=== PATIENT | male | born 1960 | race Caucasian/White ===

== ENCOUNTER 2019-04-22 07:55 | Inpatient (IN) | payer OTHER ==
--- NOTE | 2019-04-22 09:11 | ED ---
Lower Extremity - HPI Summary HPI Summary: This patient is a 58 year old M presenting [place] [facility] [place] by with a chief complaint of progressively worsening right hip pain since 04/21/19. Pt reports he cannot ambulate, and has no thigh or lateral strength. Pt previously has had a hip replacement, but has not had complications before this. Per triage , the patient rates the pain 10/10 in severity. - History of Current Complaint Chief Complaint: EDHipPelvisInjury Stated Complaint: THINKS HIP REPLACEMENT BROKE PER PT Time Seen by Provider: 04/22/19 08:59 Hx Obtained From: Patient Onset of Pain: Hours Onset/Duration: Still Present Severity Initially: Moderate Severity Currently: Severe Pain Intensity: 10 Pain Scale Used: 0-10 Numeric Timing: Constant Location: Is Diffuse - right hip Aggravating Factor(s): Standing, Ambulation, Movement Able to Bear Weight: No - Allergies/Home Medications Allergies/Adverse Reactions: Allergies Allergy/AdvReac Type Severity Reaction Status Date / Time No Known Allergies Allergy Verified 04/22/19 07:59 Home Medications: Home Medications Atenolol TAB* [Tenormin TAB* 25 MG] 25 mg PO DAILY 04/22/19 [History Confirmed 04/22/19] PARoxetine HCL TAB* [Paxil TAB*] 10 mg PO DAILY 04/22/19 [History Confirmed ] PMH/Surg Hx/FS Hx/Imm Hx Sensory History: Denies: Hx Legally Blind EENT History: Denies: Hx Deafness - Surgical History Surgical History: Yes Surgery Procedure, Year, and Place: Right Hip Replacement Infectious Disease History: No Infectious Disease History: Denies: Traveled Outside the [place] in Last 30 Days - Family History Known Family History: Negative: Hypertension, Diabetes - Social History Occupation: Retired Lives: With Family Alcohol Use: None Hx Substance Use: No Substance Use Type: Reports: None Hx Tobacco Use: No Smoking Status (MU): Never Smoked Tobacco Review of Systems Negative: Fever Positive: Other - right hip pain All Other Systems Reviewed And Are Negative: Yes Physical Exam - Summary Physical Exam Summary: Appearance: Well-appearing, Well-nourished, lying in bed comfortably Skin: Warm, dry, no obvious rash Eyes: sclera anicteric, no conjunctival pallor ENT: mucous membranes moist, pharynx appears normal Neck: Supple, nontender Respiratory: Clear to auscultation, no signs of respiratory distress Cardiovascular: Normal S1, S2. No murmurs. Normal distal pulses in tibial and radial bilaterally. Abdomen: Soft, nontender, normal active bowel sounds present Musculoskeletal: Normal, Strength/ROM Intact, Tenderness over greater trochanter Neurological: A&Ox3, awake and alert, mentation is normal, speech is fluent and appropriate Psychiatric: affect is normal, does not appear anxious or depressed Triage Information Reviewed: Yes Vital Signs On Initial Exam: Initial Vitals Temp Pulse Resp BP Pulse Ox 98.6 F 86 16 114/70 96 04/22/19 07:57 04/22/19 07:57 04/22/19 07:57 04/22/19 07:57 04/22/19 07:57 Vital Signs Reviewed: Yes Diagnostics - Vital Signs Vital Signs Temp Pulse Resp BP Pulse Ox 04/22/19 07:57 98.6 F 86 16 114/70 96 - Laboratory Result Diagrams: 04/22/19 10:05 04/22/19 10:05 Lab Statement: Any lab studies that have been ordered have been reviewed, and results considered in the medical decision making process. - Radiology Hip/Pelvis X-ray Radiology Interpretation Completed By: Radiologist Summary of Radiographic Findings: Hip/Pelvis X-Ray reveals, per radiologist, IMPRESSION: #. Unremarkable radiographic follow-up of prosthetic RIGHT hip. ED physician has reviewed this radiology report. - Additional Comments Diagnostic Additional Comments: Soft Tissue US reveals, per radiologist, IMPRESSION: No definite fluid collection is noted in the ultrasound of the right hip. Aspiration will be attempted under fluoroscopy. ED physician has reviewed this radiology report Re-Evaluation - Re-Evaluation First Eval Re-Evaluation Time: 09:40 Comment: Discussed results with pt. Second Eval Re-Evaluation Time: 11:01 Comment: Discussed plan of care with pt. Lower Extremity Course/Dx - Course Course Of Treatment: This patient is a 58 year old M presenting to [facility] accompanied by with a chief complaint of progressively worsening right hip pain since 04/21/19. Pt reports he cannot ambulate, and has no thigh or lateral strength. Pt previously has had a hip replacement, but has not had complications before this. Per triage, the patient rates the pain 10/10 in severity. Blood work obtained. WBC is 18.8, Glucose is 134, C-Reactive Protein is 150.34. Hip/Pelvis X-Ray reveals, per radiologist, IMPRESSION: #. Unremarkable radiographic follow-up of prosthetic RIGHT hip. Soft Tissue US reveals, per radiologist,. IMPRESSION: No definite fluid collection is noted in the ultrasound of the right hip. Aspiration will be attempted under fluoroscopy. We discussed patient care with Dr. Beach and they recommended pt be admitted. Dr. Marrufo accepts pt for admission. Patient will be admitted. The patient is agreeable with this plan. - Diagnoses Provider Diagnoses: Septic hip - Physician Notifications Discussed Care Of Patient With: Arnulfo Beach Time Discussed With Above Provider: 09:39 Instructed by Provider To: Other - Disccused pt case with Dr. Beach; 1214 - discussed pt case with Dr. Marrufo and she acceps pt for admission. Discharge - Sign-Out/Discharge Documenting (check all that apply): Patient Departure - Admit All imaging exams completed and their final reports reviewed: Yes Patient Received Moderate/Deep Sedation with Procedure: No - Discharge Plan Condition: Good Disposition: ADMITTED TO [facility] - Attestation Statements Document Initiated by Scribe: Yes Documenting Scribe: Delores Florez Provider For Whom Scribe is Documenting (Include Credential): Dr. Jake Garcia MD Scribe Attestation: IDelores, scribed for Dr. Jake Garcia MD on 04/22/19 at 1756. Status of Scribe Document: Ready
[2019-04-22] MEDS ORDERED: Ketorolac INJ* 30 MG/ML 1 ML VIAL IV PUSH ONE (09:44)
[2019-04-22 10:28] LABS: Hematocrit 45 % (42-52); Hemoglobin 15.7 g/dL (14.0-18.0); Mean Corpuscular HGB Conc 35 g/dL (31-36); Mean Corpuscular Hemoglobin 31 pg (27-31); Mean Corpuscular Volume 88 fL (80-94); Mean Platelet Volume 9.1 fL (7.4-10.4); Platelet Count 207 10^3/uL (150-450); Red Blood Count 5.14 10^6 /uL (4.18-5.48); Red Cell Distribution Width 14 % (10-15); White Blood Count 18.8 10^3/uL (3.5-10.8)
[2019-04-22 10:44] LABS: Albumin 4.1 g/dL (3.2-5.2); Albumin/Globulin Ratio 1.6 (1-3); BUN/Creatinine Ratio 12.5 (8-20); C Reactive Protein 150.34 mg/L (<8.01); Globulin 2.6 g/dL (2-4); Potassium 3.7 mmol/L (3.5-5.0); Total Bilirubin 0.8 mg/dL (0.2-1.0); Total Protein 6.7 g/dL (6.4-8.9)
[2019-04-22 10:54] LABS: ABS Basophils 0.1 10^3/ul (0-0.2); ABS Lymphocytes 1.2 10^3/ul (1.0-4.8); ABS Neutrophils 15.5 10^3/ul (1.5-7.7); Lymphocyte % 6.3 %; Nucleated Red Blood Cells % 0.1
[2019-04-22 12:38] LABS: Erythrocyte Sed Rate 7 mm/Hr (0-19)
[2019-04-22] MEDS ORDERED: Acetaminophen TAB* 325 MG PO PRN (14:23)
[2019-04-22] MEDS ORDERED: Ondansetron ODT TAB* 4 MG PO PRN (14:23)
[2019-04-22] MEDS ORDERED: oxyCODONE TAB* 5 MG TAB PO PRN (14:23)
[2019-04-22] MEDS ORDERED: Magnesium Hydroxide LIQ* 30 ML UDC PO PRN (14:23)
[2019-04-22] MEDS ORDERED: Morphine INJ* 2 MG/ML 1 ML SYRINGE (TWO MG - NEW SYRINGE VERSION) IV PRN (14:23)
[2019-04-22] MEDS ORDERED: Cyclobenzaprine TAB* 10 MG PO PRN (14:23)
[2019-04-22] MEDS ORDERED: Ondansetron INJ* 2 MG/ML VIAL IV PRN (14:23)
[2019-04-22] MEDS ORDERED: diPHENhydraMINE PO* 25 MG PO PRN (14:23)
[2019-04-22] MEDS ORDERED: oxyCODONE/Acetamin 5/325 MG* TAB PO PRN (14:23)
[2019-04-22] MEDS ORDERED: diPHENhydraMINE IV* 50 MG/ML 1 ml VIAL (BENADRYL) IV PRN (14:23)
[2019-04-22 14:36] LABS: Body Fluid Source Synovial Fluid
[2019-04-22] MEDS ORDERED: Vancomycin per Pharmacy* NOTE FOLLOW UP SCH (15:00)
[2019-04-22] MEDS ORDERED: Vancomycin(*) 2,000 MG in NS 0.9% 500 ML* 500 ML IVPB ONE (15:30)
[2019-04-22] MEDS: oxyCODONE/Acetamin 5/325 MG* TAB PO PRN ×2 (16:41→20:53)
--- NOTE | 2019-04-22 17:54 | HP ---
ADMISSION HISTORY AND PHYSICAL: DATE OF ADMISSION: 04/22/19 ATTENDING ORTHOPEDIC PROVIDER: Arnulfo Beach MD.* (DICTATED BY JORDAN DÍAZ) CHIEF COMPLAINT: Right hip pain. HISTORY OF PRESENT ILLNESS: The patient is a 58-year-old male who presented to [facility] today on 04/22/19 with a chief complaint of right hip pain x2 days with associated fever and chills. Onset of pain was not associated with any trauma or overuse. The patient does not have any recent history of illness or any recent history of dental work. The patient is typically able to walk long distances without an assisted device and without any hip pain, though as of 2 days ago, he is completely unable to bear weight. He does have a history of right total hip replacement by Dr. Knapp in 2011. He has had no problems with this hip since it was placed. Past medical history includes hypertension and hyperlipidemia. Pain is localized to the right hip , it is severe and It does not radiate. The patient denies any recent illness including URI, chest congestion, cough, abdominal pain, nausea, dysuria, or skin lesions. The patient had an embedded tick in the left side of his face 1 week ago and has had roughly 50 tick bites in the past. He has no history of heart attack, stroke, DVT, PE, blood transfusion, HIV, or hepatitis. He has no history of adverse effects with anesthesia. PAST MEDICAL HISTORY: 1. Hypertension. 2. Hyperlipidemia. PAST SURGICAL HISTORY: Hernia repair and right total hip arthroplasty. No history of adverse effects with anesthesia. MEDICATIONS: Home medications include simvastatin 40 mg and a blood pressure medication, the patient does not recall. ALLERGIES: No known drug allergies. FAMILY HISTORY: No adverse effects with anesthesia. SOCIAL HISTORY: He does not drink, smoke, or use illicit drugs. 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 REVIEW OF SYSTEMS: General: Positive for fever and chills. Negative for recent illness. HEENT: Negative for any headache, head trauma. Cardio: No irregular heart beats, chest pain, or history of WA. Respiratory: No shortness of breath or cough. No history of asthma. Abdomen: No abdominal pain, nausea, vomiting, or diarrhea. : No dysuria. Musculoskeletal: Positive for severe right hip pain. Neuro: Sensation intact to all extremities without any reported numbness or paresthesias. Hematology: No history of blood clot. Skin: No rash or skin lesions. PHYSICAL EXAMINATION GENERAL: No acute distress though appears uncomfortable. +oriented to person, place, and time. The patient appears flushed. VITAL SIGNS: Temperature 100.0, pulse rate 75, respiratory rate 16, oxygen saturation 96%, blood pressure 138/77. HEENT: Normocephalic, atraumatic. Extraocular movements are intact. RESPIRATORY: Clear to auscultation bilaterally. CARDIO: S1, S2. ABDOMEN: Bowel sounds are normoactive. Nontender to palpation. No guarding or rigidity. MUSCULOSKELETAL: Upper extremities and left lower extremity, skin envelope intact. No obvious deformity. Nontender to palpation. Active flexion and extension in all major joints without pain. Right lower extremity, skin envelope intact. No obvious bony deformity. The patient is exquisitely tender over the hip. There is no erythema, warmth, or obvious fluctuance in this area. He is unable to actively flex at the hip due to pain. Passive range of motion 0 to 45 is relatively nonpainful, though he does have some moderate pain starting at 45 degrees of flexion that becomes severe by 80 degrees of flexion. Negative logroll at the hip. NEURO: Sensation intact to light touch throughout bilateral upper and lower extremities. VASCULAR: DP pulse 2+ bilaterally. PSYCH: Appropriate affect. SKIN: No rash, lesions. No open fractures. DIAGNOSTIC STUDIES: Hip x-ray, unremarkable. Right hip and pelvis x-ray, no sign of fracture dislocation. Right hip aspiration, successful for aspiration of 15 cc of murky pink fluid from the right hip. ASSESSMENT: Septic right hip, also need to rule out lyme PLAN: The patient agrees to I and D of right hip, which is planned for tomorrow. I have consulted Infectious Disease for antibiotic management as well as the hospitalist service for medical comanagement and preop optimization. Blood culture, CBC, BMP, type and screen, INR, lyme screen ordered. I have also added on lyme studies to the fluid culture. The patient will be on subcu heparin for DVT prophylaxis, which needs to be held at midnight and he needs to n.p.o. from midnight for OR tomorrow. I will start him on vancomycin. Antibiotics to be narrowed per cultures. The patient will be seen by Dr. Yong bynum. I have relayed results of aspiration and my exam to Dr Beach who agrees with the plan. JORDAN DÍAZ [id number]/[facility] #: [id number] [facility]
--- NOTE | 2019-04-22 18:52 | CONSULT ---
Consult Consult: S: See consult note by JORDAN Hart from Ortho Service. 58 yo M, works at [employer], [address] Knapp, without any problems whatsoever with R hip until yesterday, 04/21/19. R hip pain started at work yesterday, worsened so that he could barely walk. Overnight fevers, sweats, chills, came to ED this morning. ED history and exam concerning for infection, labs obtained, ortho called and patient admitted to my service. No recent risk factors identified for a bacterial joint infection. Colonoscopy multiple months ago. Recent embedded tick bite 2-3 weeks ago on face. O: Diaphoretic. RLE: - increased warmth skin of hip and thigh - TTP about hip - pain beyond passive hip flexion of 40 degrees, pain with passive hip rotation - NVID Microbiology 04/22/19 14:14 Body Fluid Gram Stain - Final Selected Entries 04/22/19 04/22/19 16:26 17:14 Temperature 99.4 F 99.4 F Laboratory Tests 04/22/19 04/22/19 04/22/19 10:05 10:05 14:14 WBC 18.8 H Neut % (Auto) 82.7 C-Reactive Protein 150.34 H Fluid WBC 03339 A: Infected R total hip arthroplasty P: - See note from JORDAN Hart - Given the level of pain, the significant elevation in WBC, the gram stain, a bacterial infection is significantly more likely than a Lyme infection - The patient benefits prognosis-wyman from an early onset with just 1 day of symptoms at this point - ID and Hospitalist consults pending - The patient will go to the OR tomorrow or Saturday for open I&D with exchange of polyethylene liner by myself or one of my partners - Await blood culture, hip aspiration culture results to refine antibiotic coverage. Patient currently on Vanco. - NPO p midnight, hold anticoagulation post midnight
--- NOTE | 2019-04-22 19:31 | CONSULT ---
Subjective Date of Service: 04/22/19 Interval History: This is a 58 year old male with hx of OA, HTN and HLP that presented to the ED with 2 day history of progressive hip pain, fevers, chills and diaphoresis. Patient has history of right total hip [place] [address] Knapp. He has had no complications since his surgery and up to this point has been in good health. In the ER, he is noted to have leukocytosis and fever. Joint aspirate of the right hip appears purulent. Plan is for the OR tomorrow with orthopedics for washout. Hospitalists are consulted for pre-op evaluation. Patient denies any dyspnea with exertion, no chest pain, no previous hx of ischemic events or stroke, no renal disease and no hx of diabetes mellitus. He normally walks 6-8 miles per day at work without issue. 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 with Past Medical History: Unchanged from Admission - HTN, HLP, OA Review of Systems - Measurements Intake and Output: Intake and Output Last 24 Hours 04/20/19 04/21/19 04/22/19 04/23/19 06:59 06:59 06:59 06:59 Intake Total 520 Balance 520 Weight 245 lb Intake: IV Fluids 20 NS 20 Medicated IV 500 Vancomycin 500 - Review of Systems General Comments: Reports general malaise, pain and discomfort Constitutional Symptoms: Negative: Weight Gain, Weight Loss, Weakness, Fatigue, Fever, Night Sweats, Unexplained Falls, Other Dermatology: Negative: Normal, Rash, Skin Lesions, Cancer, Skin Lumps, Other HEENT: Positive: Normal Eyes: Positive: Contacts or Glasses Thyroid: Positive: Normal Pulmonary: Negative: Normal, Cough, Sputum, Hemoptysis, Wheezing, Respiratory Distress, Shortness of Breath, COPD, Asthma, Exercise Intolerance, Home Oxygen, Other Cardiology: Negative: Normal, Chest Pain, Shortness of Breath, Palpitations, Swelling of Ankles, Peripheral Vascular Dis, Edema, Faintness, Syncope, Claudication, Proximal NocturnalDyspnea, Orthopnoea, Other Gastroenterology: Negative: Normal, Abdominal Pain, Nausea, Vomiting, Anorexia, Indigestion, Difficulty Swallowing, Heartburn, Constipation, Diarrhea, Blood in Stools, Change in Bowel Habits, Haematemesis, Melena, Other Genital - Urinary: Negative: Normal, Dysuria, Hematuria, Polyuria, Nocturia, Other Musculoskeletal: Positive: Joint Pain Endocrinology: Negative: Normal, Thyroid Problems, Adrenal Problems, Gonadal Problems, Family Hx Endocrine Disorders, Obesity, Diabetes Mellitus, Hyperglycemia, Hx Hypoglycemia, Diabetic Foot Ulcers, Calluses, Hirsutism, Menstrual Abnormalities , Polydipsia, Polyuria, Gonadal Problems, Gynecomastia, Pituitary disease, Other Neurology: Positive: Normal Psychiatry: Positive: Normal Allergic/Immunologic: Negative: Hx Anaphylaxis, Hx Angioedema, Hx Environmental, Hx Seasonal, Asthma, Hx HIV, Immunocompromise, Swollen Glands LymphNodes, Other Objective Active Medications: Acetaminophen (Tylenol Tab*) 975 mg PO Q8H PRN PRN Reason: FEVER/PAIN Atenolol (Tenormin Tab*) 25 mg PO DAILY [facility] Cyclobenzaprine HCl (Flexeril Tab*) 10 mg PO TID PRN PRN Reason: SPASMS Diphenhydramine HCl (Benadryl Iv*) 25 mg IV Q6H PRN PRN Reason: itching Diphenhydramine HCl (Benadryl Po*) 25 mg PO Q6H PRN PRN Reason: itching Docusate Sodium (Colace Cap*) 100 mg PO BID [facility] Heparin Sodium (Porcine) (Heparin Vial(*)) 5,000 units SUBCUT Q8HR [facility] Stop: 04/22/19 23:59 Vancomycin HCl 1,250 mg/ (Sodium Chloride) 250 mls @ 166.667 mls/hr IVPB Q8H [facility] Lactated Ringer's (Lactated Ringers 1000 Ml Bag*) 1,000 mls @ 100 mls/hr IV PER RATE [facility] Lactulose (Lactulose*) 30 ml PO BID PRN PRN Reason: CONSTIPATION Magnesium Hydroxide (Milk Of Magnesia Liq*) 30 ml PO BID [facility] Magnesium Hydroxide (Milk Of Magnesia Liq*) 30 ml PO Q6H PRN PRN Reason: constipation Morphine Sulfate (Morphine Inj (Syringe))*) 2 mg IV Q4H PRN PRN Reason: PAIN - BREAKTHROUGH Ondansetron HCl (Zofran Inj*) 4 mg IV Q6H PRN PRN Reason: nausea Ondansetron HCl (Zofran Odt Tab*) 4 mg PO Q6H PRN PRN Reason: NAUSEA Oxycodone HCl (Roxycodone Tab*) 10 mg PO Q4H PRN PRN Reason: PAIN - SEVERE Oxycodone/Acetaminophen (Percocet 5/325 Tab*) 1 tab PO Q4H PRN PRN Reason: PAIN - MILD Oxycodone/Acetaminophen (Percocet 5/325 Tab*) 2 tab PO Q4H PRN PRN Reason: PAIN - MODERATE Last Admin: 04/22/19 16:41 Dose: 2 tab Paroxetine HCl (Paxil Tab*) 10 mg PO DAILY [facility] Pharmacy Consult (Vancomycin Per Pharmacy*) 1 note FOLLOW UP .VANC PER PHARMACY [facility]; Protocol Pharmacy Profile Note (Vancomycin Trough Check) 1 note FOLLOW UP 1500 ONE Stop: 04/23/19 15:01 Vital Signs - 8 hr 04/22/19 04/22/19 04/22/19 11:29 11:59 12:01 Temperature Pulse Rate 79 75 75 Respiratory Rate Blood Pressure 113/67 122/65 (mmHg) O2 Sat by Pulse 93 94 94 Oximetry 04/22/19 04/22/19 04/22/19 13:00 13:05 14:42 Temperature Pulse Rate 77 81 77 Respiratory Rate Blood Pressure 120/74 (mmHg) O2 Sat by Pulse 94 94 94 Oximetry 04/22/19 04/22/19 04/22/19 14:44 14:53 15:00 Temperature 100.0 F Pulse Rate 82 75 77 Respiratory 16 Rate Blood Pressure 138/77 138/77 (mmHg) O2 Sat by Pulse 95 96 95 Oximetry 04/22/19 04/22/19 04/22/19 15:05 16:00 16:05 Temperature Pulse Rate 84 84 83 Respiratory Rate Blood Pressure 126/68 120/67 (mmHg) O2 Sat by Pulse 93 92 92 Oximetry 04/22/19 04/22/19 04/22/19 16:26 16:40 16:41 Temperature 99.4 F Pulse Rate 80 Respiratory 18 20 18 Rate Blood Pressure 123/62 (mmHg) O2 Sat by Pulse 95 Oximetry 04/22/19 17:14 Temperature 99.4 F Pulse Rate 80 Respiratory 18 Rate Blood Pressure 123/62 (mmHg) O2 Sat by Pulse 95 Oximetry Oxygen Devices in Use Now: None Appearance: alert, mildly diaphoretic, NAD Eyes: No Scleral Icterus, PERRLA Ears/Nose/Mouth/Throat: NL Teeth, Lips, Gums, Clear Oropharnyx, Mucous Membranes Moist Neck: NL Appearance and Movements; NL JVP, Trachea Midline Respiratory: Symmetrical Chest Expansion and Respiratory Effort, Clear to Auscultation Cardiovascular: NL Sounds; No Murmurs; No JVD, RRR, No Edema Abdominal: NL Sounds; No Tenderness; No Distention, No Hepatosplenomegaly Lymphatic: No Cervical Adenopathy Extremities: No Edema, No Clubbing, Cyanosis Skin: No Rash or Ulcers, - - mild erythema over right hip Neurological: Alert and Oriented x 3, NL Sensation, NL Muscle Strength and Tone Nutrition: Taking PO's Result Diagrams: 04/22/19 10:05 04/22/19 10:05 Microbiology and Other Data: Microbiology 04/22/19 14:14 Gram Stain - Final Body Fluid Skin and Soft Tissue MRSA/MSSA (PCR - Final Mrsa Negative S.aureus Negative Diagnostic Imaging: Patient Name: MATT GOLDSTEIN Medical Record#: [id number] Ordering Physician: Jake Garcia MD Acct.#: [id number] : 1960 Age: 58 Sex: M Location: EMERGENCY DEPARTMENT Exam Date: 04/22/19 1209 ADM Status: REG ER Order Information: Aspiration/Injection Hip Right Accession Number: [id number] CPT: 39438 Indication: Right hip pain, fever and elevated white blood cell. Approximately 27 seconds of fluoroscopy time was used. Using usual aseptic technique and lidocaine as local anesthetic a 22-gauge needle was placed within the right hip joint. Aspiration was attempted. 2 mL of saline was then injected into the joint space. The needle was then manipulated. Approximately 15 mL of pink murky fluid was then aspirated. The specimen was sent for bacteriology. IMPRESSION: Successful aspiration and localization of the right hip with aspiration of 15 mL of murky pink fluid from the right hip joint. Patient Name: MATT GOLDSTEIN Medical Record#: [id number] Ordering Physician: Grisel ORTEGA Acct.#: [id number] : 1960 Age: 58 Sex: M Location: EMERGENCY DEPARTMENT Exam Date: 04/22/19 0808 ADM Status: REG ER Order Information: HIP RIGHT 2 VIEWS AND PELVIS Accession Number: [id number] CPT: 32195 Indication: RIGHT hip pain. Post hip replacement in 2011. Comparison: March 18, 2012 Technique: AP pelvis and AP and frog-leg lateral views RIGHT hip. Report: Normally located RIGHT total hip replacement. Negative for periprosthetic fracture or stigmata of loosening. Negative for pelvic fracture or joint diastases. Lumbar sacral spine degenerative spondylosis and facet joint osteoarthritis. Unremarkable soft tissue contours. IMPRESSION: #. Unremarkable radiographic follow-up of prosthetic RIGHT hip. Assessment/Plan - Billing Assessment and Recommendations: This is a 58 year old male that presents to the ER with septic right hip prosthesis: 1. Septic Right Hip Prosthesis - POC as per orthopedics - OR for washout in AM - NPO after midnight - Pain control PRN - ID consulted, continue vancomycin and follow cultures - Tylenol for fevers - Does not appear to be meeting sepsis criteria, has leukocytosis but no hypotension or tachycardia 2. Hx of HTN - Continue atenolol 3. HLP - Continue simvastatin VTE PPX: - Heparin subq Diet: - NPO after midnight Code Status: - Full code Admission Status and Rationale: - RCRI Score is 0 Points, Class I Risk or 3.9% 30 day Risk for Post Operative Cardiac Event - Medically optimized for procedure in AM - Inpatient, dispo per ortho.
[2019-04-22] MEDS: Magnesium Hydroxide LIQ* 30 ML UDC PO SCH (20:54)
[2019-04-22] MEDS: Docusate CAP* 100 MG PO SCH (20:54)
[2019-04-22] MEDS ORDERED: Heparin VIAL(*) 5000 UNITS/ML VIAL (FIVE THOUSAND) SUBCUT SCH (22:00)
[2019-04-22] MEDS ORDERED: NS 0.9% 1000 ML** 1,000 ML IV ONE (23:30)
[2019-04-22] MEDS ORDERED: NS 0.9% IV ONE (23:30)
[2019-04-22] MEDS ORDERED: Piperacillin/Tazobac ADVAN(*) 3.375 GM in NS 0.9% 100 ML* 100 ML IVPB SCH (23:45)
[2019-04-23] MEDS: Vancomycin(*) 1,250 MG in NS 0.9% 250 ML* 250 ML IVPB SCH ×2 (00:42→07:23)
[2019-04-23] MEDS: Piperacillin/Tazobac ADVAN(*) 3.375 GM in NS 0.9% 100 ML* 100 ML IVPB SCH ×3 (03:00→12:11)
[2019-04-23] MEDS ORDERED: Lactated Ringers 1000 ML Bag* 1,000 ML IV SCH ×2 (06:00→16:00)
[2019-04-23 06:47] LABS: ABS Eosinophils 0.1 10^3/ul (0-0.6); ABS Lymphocytes 1.2 10^3/ul (1.0-4.8); ABS Monocytes 1.2 10^3/ul (0-0.8); ABS Neutrophils 8.5 10^3/ul (1.5-7.7); Eosinophil % 0.7 %; Hematocrit 40 % (42-52); Hemoglobin 13.7 g/dL (14.0-18.0); Lymphocyte % 11.1 %; Mean Corpuscular HGB Conc 34 g/dL (31-36); Mean Corpuscular Hemoglobin 30 pg (27-31); Mean Corpuscular Volume 89 fL (80-94); Mean Platelet Volume 9.1 fL (7.4-10.4); Nucleated Red Blood Cells % 0.1; Platelet Count 170 10^3/uL (150-450); Red Blood Count 4.51 10^6 /uL (4.18-5.48); Red Cell Distribution Width 14 % (10-15); White Blood Count 11.1 10^3/uL (3.5-10.8)
[2019-04-23 07:00] LABS: INR 1.02 (0.82-1.09)
[2019-04-23 07:03] LABS: BUN/Creatinine Ratio 18.9 (8-20); Calcium 8.3 mg/dL (8.6-10.3); EGFR African American 105.6 (>60); EGFR Non-African American 87.3 (>60); Potassium 3.8 mmol/L (3.5-5.0)
[2019-04-23] MEDS ORDERED: Famotidine IV* 10 MG/ML 2 ML (20 mg) IV ONE (08:25)
[2019-04-23] MEDS: PARoxetine HCL TAB* 10 MG PO SCH (08:34)
[2019-04-23] MEDS: Atenolol TAB* 25 MG PO SCH (08:34)
[2019-04-23] MEDS ORDERED: NS 0.9% 1000 ML** 1,000 ML IV ONE (09:43)
[2019-04-23] MEDS: Docusate CAP* 100 MG PO SCH ×3 (09:52→22:35)
[2019-04-23] MEDS: Magnesium Hydroxide LIQ* 30 ML UDC PO SCH ×3 (09:52→22:35)
[2019-04-23] MEDS ORDERED: Piperacillin/Tazobac ADVAN(*) 3.375 GM in NS 0.9% 100 ML* 100 ML IVPB SCH (12:00)
--- NOTE | 2019-04-23 13:37 | CONS ---
CONSULTATION REPORT: DATE OF CONSULT: 04/23/19 PRIMARY CARE PROVIDER: Dr. Mary Jane Heath. PROVIDER REQUESTING CONSULTATION: JORDAN Hart CONSULTING SERVICE: Infectious Disease. PROVIDER: Kolton Guy NP ATTENDING PROVIDER: Dr. Boom Giron.* (DICTATED BY KOLTON GUY NP) REASON FOR CONSULTATION: Septic right hip in the setting of a prosthetic joint. IMPRESSION: 1. 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 Synovial fluid was ileana and cloudy, white blood cell count 29,423, rbc's 12,641, total cell count 100, neutrophils 98, lymphocytes 2. Blood cultures from admission with Streptococcus mitis and Streptococcus oralis 3/4 bottles. Fluid from the right hip with no growth to date. The patient is currently febrile with a fever of 101.5. He has been on vancomycin and Zosyn since admission. Orthopedics is planning to take him to the operating room later today or tomorrow for incision and drainage of the hip. 2. Hypertension. 3. Hyperlipidemia. RECOMMENDATIONS: Stop vancomycin and zosyn. Start Ceftriaxone 2 gm IV daily. He should have a transthoracic echocardiogram to evaluate for endocarditis. HISTORY OF PRESENT ILLNESS: Mr. Gilliland is a 58-year-old male with past medical history significant for hypertension, hyperlipidemia, and a total right hip arthroplasty in 2011, who states that he was in his usual state of health until 2 days prior when he developed right hip pain with fevers, chills, and sweating. His pain progressed and became so bad that he was unable to ambulate , and he decided to present to the emergency room for evaluation of his symptoms. While in the emergency room, he had right hip x-ray that was unremarkable. He also had a right hip aspiration for 15 cc of reported murky pink fluid. He was seen in consultation by Orthopedics and was admitted for suspected septic right hip. While in the hospital, he had blood cultures returned with 3/4 bottles positive for Strep mitis, Strep oralis. Body fluid has no growth to date. He has been afebrile with the exception of a 101.5 temperature this morning. His initial leukocytosis of 18,800 has improved to 11.1 this morning. He reports working [place] and frequently gets tick bites, the last tick bite he had was 2 weeks ago. He had one on his left cheek that he initially thought was a mole and this fell off. He continues to report intermittent fevers, chills, diaphoresis. He denies shortness of breath, cough, muscle pain, urinary symptoms such as urgency, frequency, dysuria. He denies abdominal pain. He denies nausea, vomiting, diarrhea, or recent travel. He does report right hip discomfort. PAST MEDICAL HISTORY: 1. Hypertension. 2. Hyperlipidemia. PAST SURGICAL HISTORY: 1. Status post hernia repair. 2. Status post right total hip arthroplasty in 2012. HOME MEDICATIONS: Include: 1. Paxil 10 mg by mouth daily. 2. Atenolol 25 mg by mouth daily. HOSPITAL MEDICATIONS: 1. Acetaminophen 975 mg by mouth every 8 hours as needed for fever or pain. 2. Atenolol 25 mg by mouth daily. 3. Flexeril 10 mg by mouth 3 times daily as needed for muscle spasms. 4. Benadryl 25 mg IV or p.o. every 6 hours as needed for itching. 5. Colace 100 mg by mouth twice daily. 6. Lactated Ringers 100 mL an hour intravenous. 7. Lactulose 30 mL by mouth twice daily as needed for constipation. 8. Milk of magnesia 30 mL by mouth twice daily until BMs and 30 mL by mouth every 6 hours as needed for constipation. 9. Morphine sulfate 2 mg IV every 4 hours as needed for pain. 10. Zofran 4 mg IV or by mouth every 6 hours as needed for nausea. 11. Oxycodone 10 mg by mouth every 4 hours as needed for pain. 12. Percocet 5/325 one to two tablets by mouth every 4 hours as needed for pain. 13. Paxil 10 mg by mouth daily. 14. Zosyn 3.375 g IV every 6 hours. 15. Vancomycin 1250 mg IV every 8 hours. ALLERGIES: No known drug allergies. FAMILY HISTORY: Denies family history of recurrent or resistant infections, coronary artery disease, diabetes or cancer. SOCIAL HISTORY: He denies alcohol, tobacco, or recreational drug use. He is a former smoker. He reports quitting 20 years ago. Prior to that, he had a half to 1 pack a day smoking history for approximately 20 years. REVIEW OF SYSTEMS: I performed a 10-point review of systems. All other pertinent positives and negatives are mentioned in the history of present illness. The remaining review of systems are negative. PHYSICAL EXAMINATION: Vital Signs: Temperature 101.5, heart rate 70, respiratory rate 18, O2 sat 95% on room air, blood pressure 117/67. General Appearance: Alert, pleasant, appears to be in no acute distress. Head: Normocephalic, atraumatic. ENT: Pupils are equal and reactive to light. Extraocular movements are intact. No conjunctival hemorrhage. Mucous membranes are moist. Neck: Supple. No lymphadenopathy. Neurological: Cranial nerves II through XII are grossly intact. He is alert and oriented x4. Cardiovascular: Regular rate and rhythm. S1, S2 present. No murmurs, rubs, or gallops heard. Abdomen: Soft, nontender, and nondistended. Bowel sounds present x4. Extremities: No lower extremity edema. DP and PT pulses 2+ and symmetric. Musculoskeletal: No clubbing or cyanosis noted. The patient exhibits good strength in all extremities. There is no pain with palpation of the right or left knee. There is no crepitus. Full range of motion. No warmth. There is tenderness with palpation of the left hip. He has limited range of motion due to pain and negative log roll bilateral. No tenderness with palpation of the neck, spine, or back. Skin: No rashes or abnormalities seen. Psychological: Calm and cooperative. DIAGNOSTIC STUDIES/LABORATORY DATA: Sodium 136, potassium 3.8, chloride 105, CO2 of 24, BUN 17, creatinine 0.90, glucose 123. White blood cell count 11.1, hemoglobin 13.7, hematocrit 40, platelet count 170. ESR on admission 7. CRP on admission was 150.34. Synovial fluid per above and blood cultures per above. Please see impression and recommendations outlined above. Recommendations have been discussed with JORDAN Hart. Thank you for asking us to see Mr. Gilliland in consultation. The case has been reviewed with my attending Dr. Boom Giron, who agrees with the plan of care. Reviewed by LIANG DAVISON 04/24/19 1554 [id number]/[facility] #: [id number] MTDD
[2019-04-23] MEDS: cefTRIAXone(*) 2 GM in NS 0.9% 100 ML* 100 ML IVPB SCH (14:55)
[2019-04-23] MEDS ORDERED: Vancomycin Trough Check NOTE FOLLOW UP ONE (15:00)
[2019-04-23] MEDS ORDERED: Ondansetron ODT TAB* 4 MG PO ONE (15:39)
[2019-04-23] MEDS ORDERED: Buffered Lidocaine 1% SYRIN* 1 ML/SYRINGE INTRADERM ONE (15:39)
[2019-04-23] MEDS ORDERED: Dexamethasone TAB* 4 MG PO ONE (15:39)
--- NOTE | 2019-04-23 16:15 | PN ---
Subjective Date of Service: 04/23/19 Interval History: Patient seen and examined. Febrile today, pending OR this afternoon for washout. Discussed results from micro and strep bacteremia. Patient denies SOB, no chest pain, no SOB, no n/v. Still with hip pain on affected side and difficulty with ambulation. at bedside. 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, lives with Past Medical History: Unchanged from Admission - HTN, HLP, OA Objective Active Medications: Acetaminophen (Tylenol Tab*) 975 mg PO Q8H PRN PRN Reason: FEVER/PAIN Last Admin: 04/23/19 10:28 Dose: 975 mg Atenolol (Tenormin Tab*) 25 mg PO DAILY [facility] Last Admin: 04/23/19 08:34 Dose: 25 mg Cyclobenzaprine HCl (Flexeril Tab*) 10 mg PO TID PRN PRN Reason: SPASMS Diphenhydramine HCl (Benadryl Iv*) 25 mg IV Q6H PRN PRN Reason: itching Diphenhydramine HCl (Benadryl Po*) 25 mg PO Q6H PRN PRN Reason: itching Docusate Sodium (Colace Cap*) 100 mg PO BID [facility] Last Admin: 04/23/19 09:52 Dose: Not Given Lactated Ringer's (Lactated Ringers 1000 Ml Bag*) 1,000 mls @ 100 mls/hr IV PER RATE [facility] Last Admin: 04/23/19 05:38 Dose: 100 mls/hr Ceftriaxone Sodium 2 gm/ (Sodium Chloride) 100 mls @ 200 mls/hr IVPB Q24H [facility] Last Admin: 04/23/19 14:55 Dose: 200 mls/hr Lactated Ringer's (Lactated Ringers 1000 Ml Bag*) 1,000 mls @ 125 mls/hr IV PER RATE [facility] Lactulose (Lactulose*) 30 ml PO BID PRN PRN Reason: CONSTIPATION Magnesium Hydroxide (Milk Of Magnesia Liq*) 30 ml PO BID [facility] Last Admin: 04/23/19 09:52 Dose: Not Given Magnesium Hydroxide (Milk Of Magnesia Liq*) 30 ml PO Q6H PRN PRN Reason: constipation Morphine Sulfate (Morphine Inj (Syringe))*) 2 mg IV Q4H PRN PRN Reason: PAIN - BREAKTHROUGH Ondansetron HCl (Zofran Inj*) 4 mg IV Q6H PRN PRN Reason: nausea Ondansetron HCl (Zofran Odt Tab*) 4 mg PO Q6H PRN PRN Reason: NAUSEA Oxycodone HCl (Roxycodone Tab*) 10 mg PO Q4H PRN PRN Reason: PAIN - SEVERE Oxycodone/Acetaminophen (Percocet 5/325 Tab*) 1 tab PO Q4H PRN PRN Reason: PAIN - MILD Oxycodone/Acetaminophen (Percocet 5/325 Tab*) 2 tab PO Q4H PRN PRN Reason: PAIN - MODERATE Last Admin: 04/22/19 20:53 Dose: 2 tab Paroxetine HCl (Paxil Tab*) 10 mg PO DAILY [facility] Last Admin: 04/23/19 08:34 Dose: 10 mg Vital Signs - 8 hr 04/23/19 04/23/19 04/23/19 08:11 10:23 11:56 Temperature 101.5 F 99 F Pulse Rate 70 64 Respiratory 18 18 22 Rate Blood Pressure 117/67 102/54 (mmHg) O2 Sat by Pulse 95 94 Oximetry 04/23/19 04/23/19 12:16 15:27 Temperature 99.1 F Pulse Rate 57 Respiratory 18 22 Rate Blood Pressure 116/68 (mmHg) O2 Sat by Pulse 97 Oximetry Oxygen Devices in Use Now: None Appearance: alert, NAD Eyes: No Scleral Icterus, PERRLA Ears/Nose/Mouth/Throat: NL Teeth, Lips, Gums, Mucous Membranes Moist Neck: NL Appearance and Movements; NL JVP, Trachea Midline Respiratory: Symmetrical Chest Expansion and Respiratory Effort, Clear to Auscultation Cardiovascular: NL Sounds; No Murmurs; No JVD, RRR, No Edema Abdominal: NL Sounds; No Tenderness; No Distention Extremities: No Edema, No Clubbing, Cyanosis Skin: - - tender over right hip Neurological: Alert and Oriented x 3, NL Muscle Strength and Tone Nutrition: - - NPO Result Diagrams: 04/23/19 06:28 04/23/19 06:28 Microbiology and Other Data: Microbiology 04/22/19 14:14 Gram Stain - Final Body Fluid Skin and Soft Tissue MRSA/MSSA (PCR - Final Mrsa Negative S.aureus Negative Diagnostic Imaging: Patient Name: MATT GOLDSTEIN Medical Record#: [id number] Ordering Physician: Jake Garcia MD Acct.#: [id number] : 1960 Age: 58 Sex: M Location: EMERGENCY DEPARTMENT Exam Date: 04/22/19 1209 ADM Status: REG ER Order Information: Aspiration/Injection Hip Right Accession Number: [id number] CPT: 16098 Indication: Right hip pain, fever and elevated white blood cell. Approximately 27 seconds of fluoroscopy time was used. Using usual aseptic technique and lidocaine as local anesthetic a 22-gauge needle was placed within the right hip joint. Aspiration was attempted. 2 mL of saline was then injected into the joint space. The needle was then manipulated. Approximately 15 mL of pink murky fluid was then aspirated. The specimen was sent for bacteriology. IMPRESSION: Successful aspiration and localization of the right hip with aspiration of 15 mL of murky pink fluid from the right hip joint. Patient Name: MATT GOLDSTEIN Medical Record#: [id number] Ordering Physician: Grisel ORTEGA Acct.#: [id number] : 1960 Age: 58 Sex: M Location: EMERGENCY DEPARTMENT Exam Date: 04/22/19 0808 ADM Status: REG ER Order Information: HIP RIGHT 2 VIEWS AND PELVIS Accession Number: [id number] CPT: 98187 Indication: RIGHT hip pain. Post hip replacement in 2011. Comparison: March 18, 2012 Technique: AP pelvis and AP and frog-leg lateral views RIGHT hip. Report: Normally located RIGHT total hip replacement. Negative for periprosthetic fracture or stigmata of loosening. Negative for pelvic fracture or joint diastases. Lumbar sacral spine degenerative spondylosis and facet joint osteoarthritis. Unremarkable soft tissue contours. IMPRESSION: #. Unremarkable radiographic follow-up of prosthetic RIGHT hip. Assess/Plan/Problems-Billing Assessment and Recommendations: This is a 58 year old male that presents to the ER with septic right hip prosthesis and now found to have positive blood cultures. - Patient Problems (1) Bacteremia due to Streptococcus Code(s): R78.81 - BACTEREMIA; B95.5 - UNSP STREPTOCOCCUS THE CAUSE OF DISEASES [facility] SNOMED Code(s): 600789197863 Comment: - Strep mitis/strep oralis in joint and blood cultures - Lyme atb negative - ID following, DC vanco and continue ceftriaxone - Tylenol for fevers, IVF (2) Prosthetic hip infection Code(s): T84.59XA - INFECT/INFLM REACTION DUE TO OTH INTERNAL JOINT PROSTH, INIT ; Z96.649 - PRESENCE OF UNSPECIFIED ARTIFICIAL HIP JOINT SNOMED Code(s): 459130960 Comment: - Hip aspiration 04/22/19 yielded strep - Plan for surgical washout today with Dr. Beach - Pain control, supportive care (3) HTN (hypertension) Code(s): I10 - ESSENTIAL (PRIMARY) HYPERTENSION SNOMED Code(s): 98565315 Comment: - Stable on atenolol (4) DVT prophylaxis Code(s): Z29.9 - ENCOUNTER FOR PROPHYLACTIC MEASURES, UNSPECIFIED SNOMED Code( s): 365434482 Comment: - Restart heparin post-op (5) Full code status Code(s): Z78.9 - OTHER SPECIFIED HEALTH STATUS SNOMED Code(s): 942820276 Comment: Status and Disposition: Inpatient, dispo per ortho
--- NOTE | 2019-04-23 16:41 | ECHO ---
*[facility]* [place] [address] Fax #: [phone] Transthoracic Echocardiogram Patient: Janusz Gilliland : 1960 Study Date: 04/23/2019 Age: 58 Gender: M HR: 60 bpm Height: 72 in /182.9 cm BSA: 2.32 m^2 Weight: 244.5 lb /111.1 kg BMI: 33.2 kg/m^2 *[employer]: * Nanette Adams RD *Referring Physician: * Nanette Guy *Reading Physician: * Adali Moore MD Indications: Bacteremia. History: Risk factors: Hypertension. Obese. Hyperlipidemia. Labs, prior tests, procedures, and surgery: Right hip joint prosthesis (2011). Conclusions Summary: 1. Left ventricle: The cavity size is normal. Wall thickness is normal. Systolic function is at the lower limits of normal. The estimated ejection fraction is 50-55%. 2. Right ventricle: The cavity size is mildly dilated. 3. Left atrium: The atrium is mildly dilated. 4. Right atrium: The atrium is mildly dilated. 5. Mitral valve: There is trace regurgitation. 6. No previous echocardiogram available. Study data: Transthoracic echocardiogram. Procedure: Transthoracic echocardiography was performed. Image quality was fair. Complete 2D, spectral Doppler, and color flow Doppler. Location: Bedside. Patient status: Inpatient. Patient room number: 331. Rhythm: Normal sinus rhythm. Findings Left ventricle: The cavity size is normal. Wall thickness is normal. Systolic function is at the lower limits of normal. The estimated ejection fraction is 50-55%. Wall motion is normal; there are no regional wall motion abnormalities. Left ventricular diastolic function parameters are normal. Right ventricle: The cavity size is mildly dilated. Systolic function is low normal. Right ventricular systolic pressure may be underestimated. Ventricular septum: There is septal flattening of the interventricular septum consistent with RV volume or pressure overload. Left atrium: The atrium is mildly dilated. Right atrium: The atrium is mildly dilated. Mitral valve: The leaflets are mildly thickened. There is no evidence of a vegetation. There is no evidence of stenosis. There is trace regurgitation. Aortic valve: The valve is trileaflet. The leaflets are mildly thickened. There is no evidence of a vegetation. There is no evidence of stenosis. There is no significant regurgitation. Tricuspid valve: The leaflets are normal thickness. There is no evidence of a vegetation. There is no evidence of stenosis. There is mild regurgitation. Pulmonic valve: Not well visualized. There is no evidence of stenosis. There is trace regurgitation. Aorta: Aortic root: The aortic root is appears normal. Ascending aorta: The ascending aorta is appears normal. Aortic arch: The aortic arch is appears normal. Pericardium: A prominent pericardial fat pad is present. There is no significant pericardial effusion. Pulmonary arteries: Poorly visualized. Pulmonary artery pressure may be underestimated. Systemic veins: Inferior vena cava: The vessel is dilated. The respirophasic diameter changes are in the normal range (>= 50%). Measurements Left ventricle Value Ref Aortic valve Value Ref WILLIAM, LAX 5.0 cm 4.2 - 5.8 Vj diam, ED 2.2 cm ----- ESD, LAX 3.6 cm 2.5 - 4.0 Peak v, S 1.38 m/sec ----- FS, LAX 29 % 25 - 43 VTI, S 28.6 cm ----- PW, ED, LAX 1.0 cm 0.6 - 1.0 Mean grad, S 4.0 mm Hg ----- FS 29 % 25 - 43 Peak grad, S 8.0 mm Hg ----- PW, ED 1.0 cm 0.6 - 1.0 LVOT/AV, VTI ratio 0.66 ----- E', lat vj, TDI (L) 9.2 cm/sec >=10.0 E/e', lat vj, 10 Mitral valve Value Ref TDI Peak E 0.91 m/sec ----- E', med vj, TDI 8.1 cm/sec >=7.0 Peak A 0.66 m/sec --- -- E/e', med vj, 11 Decel time 261 ms ----- TDI Peak grad, D 3.3 mm Hg ----- E', avg, TDI 8.7 cm/sec Peak E/A ratio 1.4 ----- E/e', avg, TDI 10 <=14 Pulmonic valve Value Ref LVOT Value Ref Peak v, S 0.97 m/sec ----- Peak tiffany, S 1.05 m/sec Peak grad, S 4.0 mm Hg ----- VTI, S 19.0 cm Mean grad, S 2 mm Hg Tricuspid valve Value Ref TR peak v 2.4 m/sec <=2.8 Ventricular septum Value Ref Peak RV-RA grad, S 23 mm Hg ----- IVS, ED 1.0 cm 0.6 - 1.0 Aortic root Value Ref Right ventricle Value Ref Root diam 3.3 cm <4.4 WILLIAM, LAX 4.0 cm WILLIAM minor ax, A4C (H) 4.8 cm 1.9 - 3.5 Ascending aorta Value Ref mid AAo AP diam, S 2.9 cm ----- Pressure, S 31 mm Hg Aortic arch Value Ref Left atrium Value Ref Arch diam 2.5 cm ----- AP dim, ES 4.00 cm 3.00 - 4.00 Decending aorta Value Ref ML dim, A4C 4.2 cm Quinton peak tiffany 1.07 m/sec ----- SI dim, A4C 5.5 cm Vol/bsa, ES, 1-p 25 ml/m^2 12 - 37 Pulmonary artery Value Ref A4C Pressure, S 27.0 mm Hg ----- Vol/bsa, ES, A/L 34 ml/m^2 16 - 34 Inferior vena cava Value Ref Right atrium Value Ref Diam 2.2 cm ----- SI dim, ES 5.3 cm 3.4 - 5.3 ML dim, ES, A4C (H) 4.7 cm 2.6 - 4.4 SI dim, ES, A4C 5.3 cm 3.4 - 5.3 Estimated RAP 8 mm Hg Legend: (L) and (H) slim values outside specified reference range. Prepared and electronically signed by Adali Moore MD 04/23/2019 16:41
[2019-04-23] MEDS ORDERED: Rocuronium* 10 MG/ML VIAL ONE (17:16)
[2019-04-23] MEDS ORDERED: fentaNYL* 50 MCG/ML 2 ML VIAL (100 MCG VIAL) ONE (17:16)
[2019-04-23] MEDS ORDERED: Midazolam* 1 MG/ML 5 ML VIAL (5 MG) ONE (17:16)
[2019-04-23] MEDS ORDERED: Propofol* 10 MG/ML 20 ML BTL ONE (17:17)
[2019-04-23] MEDS ORDERED: Succinylcholine* 20 MG/ML 10 ML VIAL ONE (17:17)
[2019-04-23] MEDS ORDERED: Lidocaine 2% PF * 5 ML VIAL ONE (17:17)
[2019-04-23] MEDS ORDERED: HYDROmorphone INJ1* 1 MG/ML SYRINGE ONE (17:17)
[2019-04-23] MEDS ORDERED: Bacitracin INJECTION* 50,000 UNITS ONE (17:33)
[2019-04-23] MEDS ORDERED: Dexamethasone IV* 4 MG/ML 1 ML (4 MG) ONE (18:37)
[2019-04-23] MEDS ORDERED: EPHEDrine (Pressors)* 50 MG/ML VIAL ONE (18:37)
[2019-04-23] MEDS ORDERED: fentaNYL* 50 MCG/ML 2 ML VIAL (100 MCG VIAL) IV PRN (20:15)
[2019-04-23] MEDS ORDERED: DiMENhydriNATE IV* 50 MG/ML VIAL IV PUSH PRN (20:15)
[2019-04-23] MEDS ORDERED: Naloxone* 0.4 MG/ML 1 ML VIAL IV PRN (20:15)
[2019-04-23] MEDS ORDERED: Ondansetron INJ* 2 MG/ML VIAL ONE (20:26)
[2019-04-23] MEDS ORDERED: Ketorolac INJ* 30 MG/ML 1 ML VIAL ONE (20:26)
[2019-04-23] MEDS ORDERED: Metoclopramide IV* 5 MG/ML 2 ML VIAL ONE (20:26)
[2019-04-23] MEDS ORDERED: Ondansetron INJ* 2 MG/ML VIAL IV PRN (20:54)
[2019-04-23] MEDS ORDERED: Magnesium Hydroxide LIQ* 30 ML UDC PO PRN (20:54)
[2019-04-23] MEDS ORDERED: diPHENhydraMINE IV* 50 MG/ML 1 ml VIAL (BENADRYL) IV PRN (20:54)
[2019-04-23] MEDS ORDERED: oxyCODONE TAB* 5 MG TAB PO PRN (20:54)
[2019-04-23] MEDS ORDERED: Morphine INJ* 2 MG/ML 1 ML SYRINGE (TWO MG - NEW SYRINGE VERSION) IV PRN (20:54)
[2019-04-23] MEDS ORDERED: traZODone TAB* 50 MG TAB PO PRN (20:54)
[2019-04-23] MEDS ORDERED: oxyCODONE/Acetamin 5/325 MG* TAB PO PRN (20:54)
[2019-04-23] MEDS ORDERED: diPHENhydraMINE PO* 25 MG PO PRN (20:54)
[2019-04-23] MEDS ORDERED: traMADol TAB* 50 MG PO PRN (20:54)
[2019-04-23] MEDS ORDERED: Ondansetron ODT TAB* 4 MG PO PRN (20:54)
[2019-04-23] MEDS ORDERED: Polyethylene Glycol 3350* 17 GM PACKET PO PRN (20:54)
[2019-04-23] MEDS ORDERED: Bisacodyl SUPP* 10 MG SUPP PR PRN (20:54)
[2019-04-23] MEDS ORDERED: Cyclobenzaprine TAB* 10 MG PO PRN (20:54)
[2019-04-23] MEDS ORDERED: Acetaminophen TAB* 325 MG ONE (21:24)
[2019-04-23] MEDS: Acetaminophen TAB* 325 MG PO SCH (21:27)
[2019-04-23] MEDS: Lactated Ringers 1000 ML Bag* 1,000 ML IV SCH (22:13)
[2019-04-23] MEDS: ceFAZolin 1 GM ADVAN(*) 1 GM in NS 0.9% 50 ML* 50 ML IVPB SCH (22:23)
[2019-04-24] MEDS: Lactated Ringers 1000 ML Bag* 1,000 ML IV SCH
--- NOTE | 2019-04-24 00:33 | OP ---
DATE OF OPERATION: 04/23/19 - ROOM #331 DATE OF : 64 ATTENDING SURGEON: Silvia Dalton MD CHUTE MAN: JORDAN Pedroza. Fransiscopriti did help throughout the case with preparation of the leg, wound retraction, manipulation of the hip, and wound closure. ANESTHESIOLOGIST: Dr. Nur. ANESTHESIA: General. PRE-OP DIAGNOSIS: Infected right total hip arthroplasty. POST-OP DIAGNOSIS: Infected right total hip arthroplasty. OPERATIVE PROCEDURE: Open irrigation and debridement of right total hip arthroplasty with polyethylene liner and femoral head exchange. COMPLICATIONS: None. SPECIMEN: 10 cc of purulent fluid and multiple culture swabs were obtained and sent to microbiology for aerobic, anaerobic, mycobacterial, and fungal cultures. COMPLICATIONS: None. ESTIMATED BLOOD LOSS: 300 cc. HARDWARE USED: A Trilogy 36 liner for 56 cup with 3.5 offset was used. For the head, a 36+0 VerSys N[place]u metal head. BRIEF HISTORY/INDICATIONS: Mr. Gilliland is a 58-year-old gentleman who had total hip arthroplasty with Dr. Knapp in 2011. He had no postoperative complications and did well. Approximately 48 hours ago, the patient reports that he began to have hip pain while at work and within 4 hours, the pain was 10/10, he was unable to ambulate or bear weight on the right hip. He developed fevers and chills. He went to the emergency room the next morning on 04/22/19, and was admitted for possible infected right total hip arthroplasty. He was found to have leukocytosis. Aspiration of the hip joint yielded purulent fluid and the cell count was approximately 30,000 white blood cells. The patient was given different options including non-operative treatment and operative treatment. He wished to progress to open irrigation and debridement of the hip joint with polyethylene and femoral head exchange. He understood this was an appropriate intervention because of the acute nature of the infection onset. He understood he could need repeat washout and extended IV antibiotics. He understood he could also possibly go on to need explant of the hardware. Informed consent was obtained from the patient. He understood the risks of surgery included, but were not limited to bleeding, infection, damage to nearby structures, continued pain, need for further surgery, intraoperative fracture, nerve palsy, hardware failure or loosening, dislocation, leg length discrepancy , continued infection, stroke, heart attack, blood clot, and . He wished to proceed. Decision was made to take the patient to the operating room immediately. INTRAOPERATIVE FINDINGS: Intraoperatively, the purulent segments in joint capsule was opened. There was minimal necrotic or infected-appearing tissue. Femoral stem and acetabular cup were without any evidence of loosening. There was minimal corrosion at the femoral head-neck junction. Polyethylene liner has a small amount of wear but no significant wear. DESCRIPTION OF PROCEDURE: Mr. Gilliland was identified in the preanesthesia unit. His right lower extremity was marked as the correct operative side. Informed consent was signed and placed in the chart. The patient was taken to the operating room and placed under anesthesia. A Schofield catheter was placed. The patient was placed in the left lateral decubitus position on the pegboard. All bony prominences were well padded. Right lower extremity was prepped and draped in the usual sterile fashion. Preop time-out was made to correctly identify the patient, side, and site. Appropriate perioperative antibiotics were given within 1 hour of incision. The patient's prior hip incision was opened with a 10-blade. Electrocautery was used to dissect down to the lateral fascial layer. The lateral fascial layer was incised in line with the skin incision. A significant amount of scar tissue was cleared both anteriorly and posteriorly. A Charnley retractor was placed. Electrocautery was used to make a single posterior capsular flap. As soon as this capsule was incised, there was eruption of significant amount of purulent fluid. This was collected with a syringe as well as multiple culture swabs and sent to microbiology. The capsule was tagged with #5 Ethibond. The hip was copiously irrigated with 6 L of sterile saline and bacitracin. Scar tissue was excised using electrocautery. The hip was carefully dislocated. The femoral head was removed using a bone tamp. There was a small amount of corrosion at the head-neck junction. Femur was retracted anteriorly. Scar tissue around the acetabulum was abundant and this was carefully removed using electrocautery. Osteotome and mallet were used carefully to remove the polyethylene. Polyethylene was noted to have minimal wear. Further dissection around the acetabular cup and removal of scar tissue was performed to ensure proper placement of the new liner. Another 3 L of sterile saline was used to irrigate the hip joint. No additional purulent fluid or necrotic tissue was identified. The Trilogy 36 polyethylene for a 56 cup was chosen with 3.5 offset. This liner was impacted into the acetabulum without difficulty. Stability of the liner was checked and rechecked and noted to be stable. A 36+0 VerSys femoral head was chosen and impacted onto the femoral neck. Hip was reduced and taken through range of motion. The hip was stable in all positions. Another 3 L of fluid was used to copiously irrigate the hip joint. The previously tagged capsule was reapproximated with the posterior femur through 2 trochanteric drill holes. The lateral fascial layer was closed using interrupted #1 Vicryl. The rest of the incision was closed in a layered fashion using 0 and 2-0 Vicryl. Skin was closed using running 3-0 nylon suture. Sterile Xeroform, 4x4s, and paper tape were used to cover the incision. The patient's anesthesia was reversed without difficulty. He was taken to the PACU in stable condition. Intended weight-bearing will be weightbearing as tolerated with strict posterior hip precautions. He will have an Infectious Disease consult, PICC line, and IV antibiotics. We will monitor him carefully, follow cultures to refine antibiotic prescription. The patient understands he may need an additional washout or further surgery. [id number]/[facility] #: [id number] MTDD
[2019-04-24] MEDS: Acetaminophen TAB* 325 MG PO SCH ×3 (05:07→20:17)
[2019-04-24] MEDS: ceFAZolin 1 GM ADVAN(*) 1 GM in NS 0.9% 50 ML* 50 ML IVPB SCH ×2 (05:40→14:36)
[2019-04-24 06:21] LABS: Hematocrit 36 % (42-52); Hemoglobin 12.1 g/dL (14.0-18.0); Mean Platelet Volume 9.1 fL (7.4-10.4); Platelet Count 164 10^3/uL (150-450)
[2019-04-24 06:43] LABS: BUN/Creatinine Ratio 15.2 (8-20); Calcium 7.9 mg/dL (8.6-10.3); EGFR African American 151.1 (>60); EGFR Non-African American 124.9 (>60); Potassium 4.2 mmol/L (3.5-5.0)
[2019-04-24] MEDS: oxyCODONE/Acetamin 5/325 MG* TAB PO PRN ×2 (08:17→20:16)
[2019-04-24] MEDS: Apixaban* 2.5 MG TAB PO SCH ×2 (08:17→20:17)
[2019-04-24] MEDS: Docusate CAP* 100 MG PO SCH ×2 (08:17→20:17)
[2019-04-24] MEDS: Magnesium Hydroxide LIQ* 30 ML UDC PO SCH ×2 (08:18→20:18)
[2019-04-24] MEDS: PARoxetine HCL TAB* 10 MG PO SCH (08:18)
[2019-04-24] MEDS: Atenolol TAB* 25 MG PO SCH (08:18)
--- NOTE | 2019-04-24 10:55 | PN ---
Progress Note - Progress Note Date of Service: 04/24/19 SOAP: Subjective: []Patient seen at bedside, present. His pain is well managed right hip. Denies fever or chills, SOB, CP or dizziness. Objective: [] Vital Signs Temp 97.4 F 04/24/19 07:16 Pulse 68 04/24/19 08:15 Resp 16 04/24/19 08:34 BP 122/67 04/24/19 07:16 Pulse Ox 99 04/24/19 07:16 Intake & Output 04/23/19 04/24/19 04/24/19 18:59 06:59 18:59 Intake Total 2495 2600 210 Output Total 200 1975 Balance 2295 625 210 Intake: IV Fluids 2275 2200 ABX - VANCOMYCIN 270 LR 780 2200 NS 1225 IVPB 220 ABX - ZOSYN 220 Oral 0 400 210 Output: Urine 200 Schofield 1725 Estimated Blood Loss 250 Other: Estimated Void Medium # Bowel Movements 0 # Voids 3 Laboratory Results - last 24 hr 04/22/19 04/22/19 04/23/19 10:11 14:14 14:47 Hgb Hct Plt Count MPV Sodium Potassium Chloride Carbon Dioxide Anion Gap BUN Creatinine Est GFR ( Amer) Est GFR (Non-Af Amer) BUN/Creatinine Ratio Glucose Calcium Fluid Cell Count Rvw By Vancomycin Trough 13.0 Lyme Total Antibody Negative 04/24/19 04/24/19 05:23 05:23 Hgb 12.1 L Hct 36 L Plt Count 164 MPV 9.1 Sodium 138 Potassium 4.2 Chloride 107 Carbon Dioxide 24 Anion Gap 7 BUN 10 Creatinine 0.66 L Est GFR ( Amer) 151.1 Est GFR (Non-Af Amer) 124.9 BUN/Creatinine Ratio 15.2 Glucose 139 H Calcium 7.9 L Fluid Cell Count Rvw By Vancomycin Trough Lyme Total Antibody Microbiology 04/22/19 10:05 Aerobic Blood Culture - Final Blood Venous Strep Mitis/Strep Oralis Anaerobic Blood Culture - Preliminary No Growth Day 2 04/22/19 10:11 Aerobic Blood Culture - Final Blood Venous Strep Mitis/Strep Oralis Anaerobic Blood Culture - Final Streptococcus Mitis/Oralis 04/23/19 18:30 Skin and Soft Tissue MRSA/MSSA (PCR - Final Hip Right Mrsa Negative S.aureus Negative Gram Stain - Final 04/23/19 18:30 Gram Stain - Final Body Fluid Skin and Soft Tissue MRSA/MSSA (PCR - Final Mrsa Negative S.aureus Negative 04/22/19 14:14 Gram Stain - Final Body Fluid Skin and Soft Tissue MRSA/MSSA (PCR - Final Mrsa Negative S.aureus Negative Right hip dressing is intact and dry +Df right ankle sensation and circulation intact RLE Calf NT and soft Assessment: []s/p I&D, poly exchange infected right total hip arthroplasty POD #1 Plan: []Infectious disease consult- IV antibiotics, currently on Ceftriaxone, Cefazolin Eliquis for DVT prophylaxis WBAT RLE Dressing change 04/25
--- NOTE | 2019-04-24 11:28 | PN ---
Progress Note - Progress Note Date of Service: 04/24/19 SOAP: Subjective: CC: Right prosthetic hip infection HPI: Mr. Gilliland is a 58 yo male with PMH significant for HTN, HLD, and a right total hip arthroplasty in 2011, he presented to the hospital with significant pain in the right hip with fevers and chills. Denies fever, chills, ABD pain, nausea, vomiting, diarrhea. Right hip pain is improving, denies right knee pain. Objective: Vital Signs - 8 hr 04/24/19 04/24/19 04/24/19 03:52 04:11 07:16 Temperature 97.8 F 97.4 F Pulse Rate 60 58 Respiratory 16 16 Rate Blood Pressure 107/65 122/67 (mmHg) O2 Sat by Pulse 99 97 99 Oximetry Physical Exam: General: NAD, sitting up in a chair Neurological: Alert and Oriented x4 HEENT: Moist MM, no thrush Cardiovascular: Heart rate regular, no murmur Respiratory: Lung sounds clear Abdominal: Bowel sounds present; ABD soft, non tender and non distended MSK: No tenderness with palpation of the neck, spin or back. No edema, tenderness or effusion of the right knee Skin: No rash, face is flush Laboratory Results - last 24 hr 04/22/19 04/23/19 04/24/19 10:11 14:47 05:23 Hgb 12.1 L Hct 36 L Plt Count 164 MPV 9.1 Vancomycin Trough 13.0 Lyme Total Antibody Negative 04/24/19 05:23 Sodium 138 Potassium 4.2 Chloride 107 Carbon Dioxide 24 Anion Gap 7 BUN 10 Creatinine 0.66 L Est GFR ( Amer) 151.1 Est GFR (Non-Af Amer) 124.9 BUN/Creatinine Ratio 15.2 Glucose 139 H Calcium 7.9 L Microbiology 04/22/19 10:05 Aerobic Blood Culture - Final Blood Venous Strep Mitis/Strep Oralis Anaerobic Blood Culture - Preliminary No Growth Day 2 04/22/19 10:11 Aerobic Blood Culture - Final Blood Venous Strep Mitis/Strep Oralis Anaerobic Blood Culture - Final Streptococcus Mitis/Oralis 04/23/19 18:30 Skin and Soft Tissue MRSA/MSSA (PCR - Final Hip Right Mrsa Negative S.aureus Negative Gram Stain - Final 04/23/19 18:30 Gram Stain - Final Body Fluid Skin and Soft Tissue MRSA/MSSA (PCR - Final Mrsa Negative S.aureus Negative 04/22/19 14:14 Gram Stain - Final Body Fluid Skin and Soft Tissue MRSA/MSSA (PCR - Final Mrsa Negative S.aureus Negative Assessment: 1. Right prosthetic hip infection. Synovial fluid from the knee with WBCs 29, 423. S/P I+D with polyethylene liner and femoral head exchange by Dr. Dalton, POD #1. Afebrile for 24 hours and leukocytosis trending down on last labs, not checked today. Pain in the right hip has improved. 2. Strep viridans bacteremia. Patient with a broken tooth, suspect this may be the cause of bacteremia. TTE without vegetation. 3. Anemia. Suspect secondary to acute postop blood loss. Plan: Continue Ceftriaxone 2gm IV, will need an extended course of IV ABX. Day . Will order repeat blood cultures today. Wait for repeat blood culture to clear before placing a PICC line in the setting of gram positive bacteremia.
[2019-04-24] MEDS: cefTRIAXone(*) 2 GM in NS 0.9% 100 ML* 100 ML IVPB SCH (14:59)
--- NOTE | 2019-04-24 22:26 | PN ---
Subjective Date of Service: 04/24/19 Interval History: C/o slight pain at this surgical site. Denies chest pain or shortness of breath. denies fever or chills. denies abd pain n/v/d. 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, works [employer]le[employer], lives with Past Medical History: Unchanged from Admission - HTN, HLP, OA Objective Active Medications: Acetaminophen (Tylenol Tab*) 975 mg PO Q8H PRN PRN Reason: FEVER/PAIN Last Admin: 04/23/19 10:28 Dose: 975 mg Acetaminophen (Tylenol Tab*) 975 mg PO Q8H [facility] Last Admin: 04/24/19 20:17 Dose: 650 mg Apixaban (Eliquis*) 2.5 mg PO BID [facility] Last Admin: 04/24/19 20:17 Dose: 2.5 mg Atenolol (Tenormin Tab*) 25 mg PO DAILY [facility] Last Admin: 04/24/19 08:18 Dose: 25 mg Bisacodyl (Dulcolax Supp*) 10 mg NC DAILY PRN PRN Reason: constipation Cyclobenzaprine HCl (Flexeril Tab*) 10 mg PO TID PRN PRN Reason: SPASMS Diphenhydramine HCl (Benadryl Iv*) 25 mg IV Q6H PRN PRN Reason: itching Diphenhydramine HCl (Benadryl Po*) 25 mg PO Q6H PRN PRN Reason: itching Docusate Sodium (Colace Cap*) 100 mg PO BID [facility] Last Admin: 04/24/19 20:17 Dose: 100 mg Ceftriaxone Sodium 2 gm/ (Sodium Chloride) 100 mls @ 200 mls/hr IVPB Q24H [facility] Last Admin: 04/24/19 14:59 Dose: 200 mls/hr Lactated Ringer's (Lactated Ringers 1000 Ml Bag*) 1,000 mls @ 100 mls/hr IV PER RATE [facility] Last Admin: 04/24/19 00:00 Dose: 100 mls/hr Lactulose (Lactulose*) 30 ml PO Q6H PRN PRN Reason: constipation Magnesium Hydroxide (Milk Of Magnesia Liq*) 30 ml PO BID [facility] Last Admin: 04/24/19 20:18 Dose: 30 ml Magnesium Hydroxide (Milk Of Magnesia Liq*) 30 ml PO Q6H PRN PRN Reason: constipation Morphine Sulfate (Morphine Inj (Syringe))*) 2 mg IV Q2H PRN PRN Reason: PAIN - UNRELIEVED Ondansetron HCl (Zofran Inj*) 4 mg IV Q6H PRN PRN Reason: nausea Ondansetron HCl (Zofran Odt Tab*) 4 mg PO Q6H PRN PRN Reason: NAUSEA Oxycodone HCl (Roxycodone Tab*) 10 mg PO Q4H PRN PRN Reason: PAIN - SEVERE Oxycodone/Acetaminophen (Percocet 5/325 Tab*) 1 tab PO Q4H PRN PRN Reason: PAIN - MILD Last Admin: 04/24/19 20:16 Dose: 1 tab Oxycodone/Acetaminophen (Percocet 5/325 Tab*) 2 tab PO Q4H PRN PRN Reason: PAIN - MODERATE Paroxetine HCl (Paxil Tab*) 10 mg PO DAILY [facility] Last Admin: 04/24/19 08:18 Dose: 10 mg Polyethylene Glycol/Electrolytes (Miralax*) 17 gm PO DAILY PRN PRN Reason: Constipation Tramadol HCl (Ultram*) 50 mg PO Q6H PRN PRN Reason: PAIN Trazodone HCl (Desyrel Tab*) 25 mg PO BEDTIME PRN PRN Reason: insomnia Vital Signs - 8 hr 04/24/19 04/24/19 04/24/19 15:56 16:07 19:54 Temperature 98.5 F 98.5 F 98.3 F Pulse Rate 67 71 70 Respiratory 16 18 16 Rate Blood Pressure 113/64 127/56 128/64 (mmHg) O2 Sat by Pulse 95 96 98 Oximetry 04/24/19 04/24/19 20:16 20:23 Temperature Pulse Rate Respiratory 18 18 Rate Blood Pressure (mmHg) O2 Sat by Pulse Oximetry Oxygen Devices in Use Now: Nasal Cannula Appearance: alert and oriented resting in bed, no acute distress Eyes: No Scleral Icterus Ears/Nose/Mouth/Throat: Clear Oropharnyx, Mucous Membranes Moist Neck: NL Appearance and Movements; NL JVP, Trachea Midline Respiratory: Symmetrical Chest Expansion and Respiratory Effort, Clear to Auscultation Cardiovascular: NL Sounds; No Murmurs; No JVD, No Edema Abdominal: NL Sounds; No Tenderness; No Distention Extremities: No Edema, No Clubbing, Cyanosis Skin: No Rash or Ulcers, - - dressing dry and intact to right hip Neurological: Alert and Oriented x 3 Nutrition: Taking PO's Result Diagrams: 04/24/19 05:23 04/24/19 05:23 Microbiology and Other Data: Microbiology 04/22/19 14:14 Gram Stain - Final Body Fluid Skin and Soft Tissue MRSA/MSSA (PCR - Final Mrsa Negative S.aureus Negative Diagnostic Imaging: Patient Name: MATT GOLDSTEIN Medical Record#: [id number] Ordering Physician: Jake Garcia MD Acct.#: [id number] : 1960 Age: 58 Sex: M Location: EMERGENCY DEPARTMENT Exam Date: 04/22/19 1209 ADM Status: REG ER Order Information: Aspiration/Injection Hip Right Accession Number: [id number] CPT: 34504 Indication: Right hip pain, fever and elevated white blood cell. Approximately 27 seconds of fluoroscopy time was used. Using usual aseptic technique and lidocaine as local anesthetic a 22-gauge needle was placed within the right hip joint. Aspiration was attempted. 2 mL of saline was then injected into the joint space. The needle was then manipulated. Approximately 15 mL of pink murky fluid was then aspirated. The specimen was sent for bacteriology. IMPRESSION: Successful aspiration and localization of the right hip with aspiration of 15 mL of murky pink fluid from the right hip joint. Patient Name: MATT GOLDSTEIN Medical Record#: [id number] Ordering Physician: Grisel ORTEGA Acct.#: [id number] : 1960 Age: 58 Sex: M Location: EMERGENCY DEPARTMENT Exam Date: 04/22/19 0808 ADM Status: REG ER Order Information: HIP RIGHT 2 VIEWS AND PELVIS Accession Number: [id number] CPT: 81118 Indication: RIGHT hip pain. Post hip replacement in 2011. Comparison: March 18, 2012 Technique: AP pelvis and AP and frog-leg lateral views RIGHT hip. Report: Normally located RIGHT total hip replacement. Negative for periprosthetic fracture or stigmata of loosening. Negative for pelvic fracture or joint diastases. Lumbar sacral spine degenerative spondylosis and facet joint osteoarthritis. Unremarkable soft tissue contours. IMPRESSION: #. Unremarkable radiographic follow-up of prosthetic RIGHT hip. Assess/Plan/Problems-Billing Assessment and Recommendations: This is a 58 year old male that presents to the ER with septic right hip prosthesis and now found to have positive blood cultures. - Patient Problems (1) Bacteremia due to Streptococcus Current Visit: Yes Status: Acute Code(s): R78.81 - BACTEREMIA; B95.5 - UNSP STREPTOCOCCUS THE CAUSE OF DISEASES [facility] SNOMED Code(s): 332755828988 Comment: - Strep mitis/strep oralis in joint and blood cultures - Lyme atb negative - ID following, continue ceftriaxone - afebrile overnight (2) HTN (hypertension) Current Visit: Yes Status: Acute Code(s): I10 - ESSENTIAL (PRIMARY) HYPERTENSION SNOMED Code(s): 01828737 Comment: - Stable on atenolol (3) Prosthetic hip infection Current Visit: Yes Status: Acute Code(s): T84.59XA - INFECT/INFLM REACTION DUE TO OTH INTERNAL JOINT PROSTH, INIT; Z96.649 - PRESENCE OF UNSPECIFIED ARTIFICIAL HIP JOINT SNOMED Code(s): 378507913 Comment: - Hip aspiration 04/22/19 yielded strep - Plan for surgical washout completed POD #1 - Pain control, supportive care - 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
[2019-04-25] MEDS: Acetaminophen TAB* 325 MG PO SCH ×3 (04:39→20:28)
[2019-04-25 08:39] LABS: CO2 Carbon Dioxide 21 mmol/L (22-32); Calcium 7.7 mg/dL (8.6-10.3); Chloride 108 mmol/L (101-111); Sodium 136 mmol/L (135-145)
[2019-04-25 08:45] LABS: BUN/Creatinine Ratio 16.9 (8-20); Blood Urea Nitrogen 12 mg/dL (6-24); EGFR African American 138.9 (>60); EGFR Non-African American 114.8 (>60); Glucose 104 mg/dL (70-100)
[2019-04-25 08:46] LABS: Anion Gap 7 mmol/L (2-11)
[2019-04-25] MEDS: Magnesium Hydroxide LIQ* 30 ML UDC PO SCH ×2 (09:11→20:29)
[2019-04-25] MEDS: Apixaban* 2.5 MG TAB PO SCH ×2 (09:12→20:28)
[2019-04-25] MEDS: PARoxetine HCL TAB* 10 MG PO SCH (09:12)
[2019-04-25] MEDS: oxyCODONE/Acetamin 5/325 MG* TAB PO PRN (09:12)
[2019-04-25] MEDS: Docusate CAP* 100 MG PO SCH ×2 (09:13→20:29)
[2019-04-25] MEDS: Atenolol TAB* 25 MG PO SCH (09:13)
[2019-04-25 09:25] LABS: ABS Eosinophils 0.1 10^3/ul (0-0.6); ABS Lymphocytes 1.4 10^3/ul (1.0-4.8); ABS Neutrophils 5.5 10^3/ul (1.5-7.7); Eosinophil % 1.6 %; Hematocrit 37 % (42-52); Hemoglobin 12.6 g/dL (14.0-18.0); Lymphocyte % 17.6 %; Mean Corpuscular HGB Conc 35 g/dL (31-36); Mean Corpuscular Hemoglobin 31 pg (27-31); Mean Corpuscular Volume 89 fL (80-94); Mean Platelet Volume 9.8 fL (7.4-10.4); Nucleated Red Blood Cells % 0.1; Platelet Count 200 10^3/uL (150-450); Red Blood Count 4.08 10^6 /uL (4.18-5.48); Red Cell Distribution Width 14 % (10-15)
--- NOTE | 2019-04-25 10:59 | PN ---
Progress Note - Progress Note Date of Service: 04/25/19 SOAP: Subjective: []Patient seen OOB in chair, doing well. Waiting for 24 hr clear BC and PIC line placement. Pain well managed, did well with PT ambulating today. Objective: [] Vital Signs Temp 97.7 F 04/25/19 07:26 Pulse 67 04/25/19 07:26 Resp 16 04/25/19 09:12 BP 120/71 04/25/19 07:26 Pulse Ox 96 04/25/19 07:26 Intake & Output 04/24/19 04/25/19 04/25/19 18:59 06:59 18:59 Intake Total 810 730 960 Output Total 1000 Balance 810 -270 960 Intake: Oral 810 730 960 Output: Urine 1000 Other: Estimated Void Medium Medium Date of Last Bowel 04/25/2019 Movement # Bowel Movements 1 Estimated Stool Amount Medium # Voids 1 1 Laboratory Results - last 24 hr 04/24/19 04/25/19 04/25/19 05:23 07:58 07:58 WBC 8.0 RBC 4.08 L Hgb 12.6 L Hct 37 L MCV 89 MCH 31 MCHC 35 RDW 14 Plt Count 200 MPV 9.8 Neut % (Auto) 68.4 Lymph % (Auto) 17.6 [place] % (Auto) 11.9 Eos % (Auto) 1.6 Baso % (Auto) 0.5 Absolute Neuts (auto) 5.5 Absolute Lymphs (auto) 1.4 Absolute Monos (auto) 1.0 H Absolute Eos (auto) 0.1 Absolute Basos (auto) 0.0 Absolute Nucleated RBC 0.0 Nucleated RBC % 0.1 Sodium 138 136 Potassium 4.2 TNP Chloride 107 108 Carbon Dioxide 24 21 L Anion Gap 7 7 BUN 10 12 Creatinine 0.66 L 0.71 Est GFR ( Amer) 151.1 138.9 Est GFR (Non-Af Amer) 124.9 114.8 BUN/Creatinine Ratio 15.2 16.9 Glucose 139 H 104 H Calcium 7.9 L 7.7 L Microbiology 04/22/19 10:05 Aerobic Blood Culture - Final Blood Venous Strep Mitis/Strep Oralis Anaerobic Blood Culture - Preliminary No Growth Day 3 04/23/19 18:30 Anaerobic Culture - Preliminary Wound No Growth Day 1 04/23/19 18:30 Skin and Soft Tissue MRSA/MSSA (PCR - Final Hip Right Mrsa Negative S.aureus Negative Gram Stain - Final Wound Culture - Preliminary No Growth Day 1 04/23/19 18:30 Gram Stain - Final Body Fluid Body Fluid Culture - Preliminary No Growth Day 1 Skin and Soft Tissue MRSA/MSSA (PCR - Final Mrsa Negative S.aureus Negative 04/22/19 10:11 Aerobic Blood Culture - Final Blood Venous Strep Mitis/Strep Oralis Anaerobic Blood Culture - Final Streptococcus Mitis/Oralis 04/22/19 14:14 Gram Stain - Final Body Fluid Skin and Soft Tissue MRSA/MSSA (PCR - Final Mrsa Negative S.aureus Negative Right hip dressing changed scant bloody drainage incision benign calf NT and soft +DF right ankle 4x4 and tape applied. Assessment: []s/p I&D right total hip infection, poly exchange 04/23/19 Plan: []BC clear day3, PIC line Saturday WBAT RLE Ceftriaxone 8 wks from discharge- Poss home Saturday
[2019-04-25] MEDS: cefTRIAXone(*) 2 GM in NS 0.9% 100 ML* 100 ML IVPB SCH (13:57)
--- NOTE | 2019-04-25 15:16 | PN ---
Subjective Date of Service: 04/25/19 Interval History: Denies chest pain or shortness of breath. denies fever or chills. denies abd pain n/v/d. mild pain at the right hip surgical site rated at 2. 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 Past Medical History: Unchanged from Admission - HTN, HLP, OA Objective Active Medications: Acetaminophen (Tylenol Tab*) 975 mg PO Q8H PRN PRN Reason: FEVER/PAIN Last Admin: 04/23/19 10:28 Dose: 975 mg Acetaminophen (Tylenol Tab*) 975 mg PO Q8H [facility] Last Admin: 04/25/19 12:44 Dose: Not Given Apixaban (Eliquis*) 2.5 mg PO BID [facility] Last Admin: 04/25/19 09:12 Dose: 2.5 mg Atenolol (Tenormin Tab*) 25 mg PO DAILY [facility] Last Admin: 04/25/19 09:13 Dose: 25 mg Bisacodyl (Dulcolax Supp*) 10 mg [place] DAILY PRN PRN Reason: constipation Cyclobenzaprine HCl (Flexeril Tab*) 10 mg PO TID PRN PRN Reason: SPASMS Diphenhydramine HCl (Benadryl Iv*) 25 mg IV Q6H PRN PRN Reason: itching Diphenhydramine HCl (Benadryl Po*) 25 mg PO Q6H PRN PRN Reason: itching Docusate Sodium (Colace Cap*) 100 mg PO BID [facility] Last Admin: 04/25/19 09:13 Dose: 100 mg Ceftriaxone Sodium 2 gm/ (Sodium Chloride) 100 mls @ 200 mls/hr IVPB Q24H [facility] Last Admin: 04/25/19 13:57 Dose: 200 mls/hr Lactated Ringer's (Lactated Ringers 1000 Ml Bag*) 1,000 mls @ 100 mls/hr IV PER RATE [facility] Last Admin: 04/24/19 00:00 Dose: 100 mls/hr Lactulose (Lactulose*) 30 ml PO Q6H PRN PRN Reason: constipation Magnesium Hydroxide (Milk Of Magnesia Liq*) 30 ml PO BID [facility] Last Admin: 04/25/19 09:11 Dose: 30 ml Magnesium Hydroxide (Milk Of Magnesia Liq*) 30 ml PO Q6H PRN PRN Reason: constipation Morphine Sulfate (Morphine Inj (Syringe))*) 2 mg IV Q2H PRN PRN Reason: PAIN - UNRELIEVED Ondansetron HCl (Zofran Inj*) 4 mg IV Q6H PRN PRN Reason: nausea Ondansetron HCl (Zofran Odt Tab*) 4 mg PO Q6H PRN PRN Reason: NAUSEA Oxycodone HCl (Roxycodone Tab*) 10 mg PO Q4H PRN PRN Reason: PAIN - SEVERE Oxycodone/Acetaminophen (Percocet 5/325 Tab*) 1 tab PO Q4H PRN PRN Reason: PAIN - MILD Last Admin: 04/25/19 09:12 Dose: 1 tab Oxycodone/Acetaminophen (Percocet 5/325 Tab*) 2 tab PO Q4H PRN PRN Reason: PAIN - MODERATE Paroxetine HCl (Paxil Tab*) 10 mg PO DAILY [facility] Last Admin: 04/25/19 09:12 Dose: 10 mg Polyethylene Glycol/Electrolytes (Miralax*) 17 gm PO DAILY PRN PRN Reason: Constipation Tramadol HCl (Ultram*) 50 mg PO Q6H PRN PRN Reason: PAIN Trazodone HCl (Desyrel Tab*) 25 mg PO BEDTIME PRN PRN Reason: insomnia Vital Signs - 8 hr 04/25/19 04/25/19 04/25/19 07:26 08:00 09:12 Temperature 97.7 F Pulse Rate 67 Respiratory 18 18 16 Rate Blood Pressure 120/71 (mmHg) O2 Sat by Pulse 96 Oximetry 04/25/19 04/25/19 11:51 11:59 Temperature 98.2 F Pulse Rate 66 Respiratory 18 16 Rate Blood Pressure 109/61 (mmHg) O2 Sat by Pulse 96 Oximetry Oxygen Devices in Use Now: None Appearance: alert and oriented x3 Eyes: No Scleral Icterus Ears/Nose/Mouth/Throat: Clear Oropharnyx, Mucous Membranes Moist Neck: NL Appearance and Movements; NL JVP, Trachea Midline Respiratory: Symmetrical Chest Expansion and Respiratory Effort, Clear to Auscultation Cardiovascular: NL Sounds; No Murmurs; No JVD, No Edema Abdominal: NL Sounds; No Tenderness; No Distention Extremities: No Edema, No Clubbing, Cyanosis Skin: No Rash or Ulcers, - - dressing dry and intact to right hip Neurological: Alert and Oriented x 3 Nutrition: Taking PO's Result Diagrams: 04/25/19 07:58 04/25/19 11:10 Microbiology and Other Data: Microbiology 04/22/19 14:14 Gram Stain - Final Body Fluid Skin and Soft Tissue MRSA/MSSA (PCR - Final Mrsa Negative S.aureus Negative Diagnostic Imaging: Patient Name: MATT GOLDSTEIN Medical Record#: [id number] Ordering Physician: Jake Garcia MD Acct.#: [id number] : 1960 Age: 58 Sex: M Location: EMERGENCY DEPARTMENT Exam Date: 04/22/19 1209 ADM Status: REG ER Order Information: Aspiration/Injection Hip Right Accession Number: [id number] CPT: 03571 Indication: Right hip pain, fever and elevated white blood cell. Approximately 27 seconds of fluoroscopy time was used. Using usual aseptic technique and lidocaine as local anesthetic a 22-gauge needle was placed within the right hip joint. Aspiration was attempted. 2 mL of saline was then injected into the joint space. The needle was then manipulated. Approximately 15 mL of pink murky fluid was then aspirated. The specimen was sent for bacteriology. IMPRESSION: Successful aspiration and localization of the right hip with aspiration of 15 mL of murky pink fluid from the right hip joint. Patient Name: MATT GOLDSTEIN Medical Record#: [id number] Ordering Physician: Grisel ORTEGA Acct.#: [id number] : 1960 Age: 58 Sex: M Location: EMERGENCY DEPARTMENT Exam Date: 04/22/19 0808 ADM Status: REG ER Order Information: HIP RIGHT 2 VIEWS AND PELVIS Accession Number: [id number] CPT: 22267 Indication: RIGHT hip pain. Post hip replacement in 2011. Comparison: March 18, 2012 Technique: AP pelvis and AP and frog-leg lateral views RIGHT hip. Report: Normally located RIGHT total hip replacement. Negative for periprosthetic fracture or stigmata of loosening. Negative for pelvic fracture or joint diastases. Lumbar sacral spine degenerative spondylosis and facet joint osteoarthritis. Unremarkable soft tissue contours. IMPRESSION: #. Unremarkable radiographic follow-up of prosthetic RIGHT hip. Assess/Plan/Problems-Billing Assessment and Recommendations: This is a 58 year old male that presents to the ER with septic right hip prosthesis and now found to have positive blood cultures. - Patient Problems (1) Bacteremia due to Streptococcus Current Visit: Yes Status: Acute Code(s): R78.81 - BACTEREMIA; B95.5 - UNSP STREPTOCOCCUS THE [facility] Code(s): 460366859150 Comment: - Strep mitis/strep oralis in joint and blood cultures - Lyme atb negative - ID following, continue ceftriaxone 2 gms IV - remains afebrile (2) HTN (hypertension) Current Visit: Yes Status: Acute Code(s): I10 - ESSENTIAL (PRIMARY) HYPERTENSION SNOMED Code(s): 91687337 Comment: - Stable on atenolol (3) Prosthetic hip infection Current Visit: Yes Status: Acute Code(s): T84.59XA - INFECT/INFLM REACTION DUE TO OTH INTERNAL JOINT PROSTH, INIT; Z96.649 - PRESENCE OF UNSPECIFIED ARTIFICIAL HIP JOINT SNOMED Code(s): 780160784 Comment: - Hip aspiration 04/22/ yielded strep - Plan for surgical washout completed POD #1 - Pain control, supportive care - 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
[2019-04-25 22:33] LABS: B. garinii/B. afzellii PCR Negative (Negative); Lyme Disease Source SYNOVIAL FLUID
[2019-04-26] MEDS: Acetaminophen TAB* 325 MG PO SCH ×3 (05:55→20:55)
[2019-04-26 08:23] LABS: Hematocrit 36 % (42-52); Hemoglobin 12.6 g/dL (14.0-18.0); Mean Platelet Volume 8.3 fL (7.4-10.4); Platelet Count 268 10^3/uL (150-450)
[2019-04-26] MEDS: Atenolol TAB* 25 MG PO SCH (08:54)
[2019-04-26] MEDS: PARoxetine HCL TAB* 10 MG PO SCH (08:54)
[2019-04-26] MEDS: Docusate CAP* 100 MG PO SCH ×2 (08:54→20:55)
[2019-04-26] MEDS: Apixaban* 2.5 MG TAB PO SCH ×2 (08:54→20:55)
[2019-04-26] MEDS: Magnesium Hydroxide LIQ* 30 ML UDC PO SCH ×2 (08:55→20:56)
--- NOTE | 2019-04-26 10:38 | PN ---
Progress Note - Progress Note Date of Service: 04/26/19 SOAP: Subjective: []Patient seen bedside, continues to do well. Denies fever, chills, CP, SOB, nausea or vomiting. Hoping to go home tomorrow after PIC line placement. Objective: [] Vital Signs Temp 98.8 F 04/26/19 07:16 Pulse 74 04/26/19 07:16 Resp 18 04/26/19 08:00 BP 130/80 04/26/19 07:16 Pulse Ox 96 04/26/19 07:16 Intake & Output 04/25/19 04/26/19 04/26/19 18:59 06:59 18:59 Intake Total 1635 770 720 Output Total 1999 Balance 1635 -1230 720 Intake: IV Fluids 30 NS 30 IVPB 105 ABX - CEFTRIAXONE 105 Oral 1500 770 720 Output: Urine 2000 Other: Estimated Void Medium Medium # Voids 3 1 Laboratory Results - last 24 hr 04/22/19 04/25/19 04/26/19 14:14 11:10 08:00 Hgb 12.6 L Hct 36 L Plt Count 268 MPV 8.3 Potassium 4.3 B. burgdorferi (PCR) Negative B. mayonii (PCR) Negative B.garinii/B.afzelii PCR Negative Lyme Specimen Source Synovial fluid Right hip dressing dry and intact calf NT and soft +DF right ankle sensation intact distally RLe Assessment: []s/p I&D poly exchange infected right total hip POD #3 Plan: []BC clear day3, PIC line Saturday eliquis BID- 30 days post op DVT prophy WBAT RLE Ceftriaxone 8 wks from discharge- Plan for home Saturday
--- NOTE | 2019-04-26 13:21 | PN ---
Subjective Date of Service: 04/26/19 Interval History: reports that slept well overnight. Denies chest pain or shortness of breath. no fever or chills. denies abd pain n/v/d. mild pain to left hip incision. 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, lives with Past Medical History: Unchanged from Admission - HTN, HLP, OA Objective Active Medications: Acetaminophen (Tylenol Tab*) 975 mg PO Q8H PRN PRN Reason: FEVER/PAIN Last Admin: 04/23/19 10:28 Dose: 975 mg Acetaminophen (Tylenol Tab*) 975 mg PO Q8H [facility] Last Admin: 04/26/19 05:55 Dose: Not Given Apixaban (Eliquis*) 2.5 mg PO BID [facility] Last Admin: 04/26/19 08:54 Dose: 2.5 mg Atenolol (Tenormin Tab*) 25 mg PO DAILY [facility] Last Admin: 04/26/19 08:54 Dose: 25 mg Bisacodyl (Dulcolax Supp*) 10 mg [place] DAILY PRN PRN Reason: constipation Cyclobenzaprine HCl (Flexeril Tab*) 10 mg PO TID PRN PRN Reason: SPASMS Diphenhydramine HCl (Benadryl Iv*) 25 mg IV Q6H PRN PRN Reason: itching Diphenhydramine HCl (Benadryl Po*) 25 mg PO Q6H PRN PRN Reason: itching Docusate Sodium (Colace Cap*) 100 mg PO BID [facility] Last Admin: 04/26/19 08:54 Dose: 100 mg Ceftriaxone Sodium 2 gm/ (Sodium Chloride) 100 mls @ 200 mls/hr IVPB Q24H [facility] Last Admin: 04/25/19 13:57 Dose: 200 mls/hr Lactated Ringer's (Lactated Ringers 1000 Ml Bag*) 1,000 mls @ 100 mls/hr IV PER RATE [facility] Last Admin: 04/24/19 00:00 Dose: 100 mls/hr Lactulose (Lactulose*) 30 ml PO Q6H PRN PRN Reason: constipation Magnesium Hydroxide (Milk Of Magnesia Liq*) 30 ml PO BID [facility] Last Admin: 04/26/19 08:55 Dose: Not Given Magnesium Hydroxide (Milk Of Magnesia Liq*) 30 ml PO Q6H PRN PRN Reason: constipation Morphine Sulfate (Morphine Inj (Syringe))*) 2 mg IV Q2H PRN PRN Reason: PAIN - UNRELIEVED Ondansetron HCl (Zofran Inj*) 4 mg IV Q6H PRN PRN Reason: nausea Ondansetron HCl (Zofran Odt Tab*) 4 mg PO Q6H PRN PRN Reason: NAUSEA Oxycodone HCl (Roxycodone Tab*) 10 mg PO Q4H PRN PRN Reason: PAIN - SEVERE Oxycodone/Acetaminophen (Percocet 5/325 Tab*) 1 tab PO Q4H PRN PRN Reason: PAIN - MILD Last Admin: 04/25/19 09:12 Dose: 1 tab Oxycodone/Acetaminophen (Percocet 5/325 Tab*) 2 tab PO Q4H PRN PRN Reason: PAIN - MODERATE Paroxetine HCl (Paxil Tab*) 10 mg PO DAILY [facility] Last Admin: 04/26/19 08:54 Dose: 10 mg Polyethylene Glycol/Electrolytes (Miralax*) 17 gm PO DAILY PRN PRN Reason: Constipation Tramadol HCl (Ultram*) 50 mg PO Q6H PRN PRN Reason: PAIN Trazodone HCl (Desyrel Tab*) 25 mg PO BEDTIME PRN PRN Reason: insomnia Vital Signs - 8 hr 04/26/19 04/26/19 04/26/19 07:16 08:00 11:41 Temperature 98.8 F 98.3 F Pulse Rate 74 63 Respiratory 16 18 18 Rate Blood Pressure 130/80 126/74 (mmHg) O2 Sat by Pulse 96 95 Oximetry Oxygen Devices in Use Now: None Appearance: alert , sitting in the chair. no acute distress Eyes: No Scleral Icterus Ears/Nose/Mouth/Throat: NL Teeth, Lips, Gums, Mucous Membranes Moist Neck: NL Appearance and Movements; NL JVP, Trachea Midline Respiratory: Symmetrical Chest Expansion and Respiratory Effort, Clear to Auscultation Cardiovascular: NL Sounds; No Murmurs; No JVD, No Edema Abdominal: NL Sounds; No Tenderness; No Distention Extremities: No Edema, No Clubbing, Cyanosis Skin: No Rash or Ulcers, - - dressing intact and dry to left hip Neurological: Alert and Oriented x 3 Nutrition: Taking PO's Result Diagrams: 04/26/19 08:00 04/25/19 11:10 Microbiology and Other Data: Microbiology 04/22/19 14:14 Gram Stain - Final Body Fluid Skin and Soft Tissue MRSA/MSSA (PCR - Final Mrsa Negative S.aureus Negative Diagnostic Imaging: Patient Name: MATT GOLDSTEIN Medical Record#: [id number] Ordering Physician: Jake Garcia MD Acct.#: [id number] : 1960 Age: 58 Sex: M Location: EMERGENCY DEPARTMENT Exam Date: 04/22/19 1209 ADM Status: REG ER Order Information: Aspiration/Injection Hip Right Accession Number: [id number] CPT: 05875 Indication: Right hip pain, fever and elevated white blood cell. Approximately 27 seconds of fluoroscopy time was used. Using usual aseptic technique and lidocaine as local anesthetic a 22-gauge needle was placed within the right hip joint. Aspiration was attempted. 2 mL of saline was then injected into the joint space. The needle was then manipulated. Approximately 15 mL of pink murky fluid was then aspirated. The specimen was sent for bacteriology. IMPRESSION: Successful aspiration and localization of the right hip with aspiration of 15 mL of murky pink fluid from the right hip joint. Patient Name: MATT GOLDSTEIN Medical Record#: [id number] Ordering Physician: Grisel ORTEGA Acct.#: [id number] : 1960 Age: 58 Sex: M Location: EMERGENCY DEPARTMENT Exam Date: 04/22/19 0808 ADM Status: REG ER Order Information: HIP RIGHT 2 VIEWS AND PELVIS Accession Number: [id number] CPT: 48655 Indication: RIGHT hip pain. Post hip replacement in 2012. Comparison: March 18, 2012 Technique: AP pelvis and AP and frog-leg lateral views RIGHT hip. Report: Normally located RIGHT total hip replacement. Negative for periprosthetic fracture or stigmata of loosening. Negative for pelvic fracture or joint diastases. Lumbar sacral spine degenerative spondylosis and facet joint osteoarthritis. Unremarkable soft tissue contours. IMPRESSION: #. Unremarkable radiographic follow-up of prosthetic RIGHT hip. Assess/Plan/Problems-Billing Assessment and Recommendations: This is a 58 year old male that presents to the ER with septic right hip prosthesis and now found to have positive blood cultures. - Patient Problems (1) Bacteremia due to Streptococcus Current Visit: Yes Status: Acute Code(s): R78.81 - BACTEREMIA; B95.5 - UNSP STREPTOCOCCUS THE CAUSE OF DISEASES CLASSD [facility] SNOMED Code(s): 054700953602 Comment: - Strep mitis/strep oralis in joint and blood cultures - repeat blood cultures show no growth for 2 days - Lyme atb negative - ID following, continue ceftriaxone 2 gms IV - remains afebrile (2) HTN (hypertension) Current Visit: Yes Status: Acute Code(s): I10 - ESSENTIAL (PRIMARY) HYPERTENSION SNOMED Code(s): 64753695 Comment: - Stable on atenolol (3) Prosthetic hip infection Current Visit: Yes Status: Acute Code(s): T84.59XA - INFECT/INFLM REACTION DUE TO OTH INTERNAL JOINT PROSTH, INIT; Z96.649 - PRESENCE OF UNSPECIFIED ARTIFICIAL HIP JOINT SNOMED Code(s): 984364761 Comment: - Hip aspiration 04/22/19 yielded strep - Plan for surgical washout completed 04/23 - Pain control, supportive care - will need picc line when blood cultures are cleared for [facility] IV antibiotics - blood cultures today - no growth x 1 day (4) DVT prophylaxis Current Visit: Yes Status: Acute Code(s): Z29.9 - ENCOUNTER FOR PROPHYLACTIC MEASURES, UNSPECIFIED SNOMED Code(s): 389429274 Comment: Candi (5) Full code status Current Visit: Yes Status: Acute Code(s): Z78.9 - OTHER SPECIFIED HEALTH STATUS SNOMED Code(s): 552571569 Comment: Status and Disposition: Inpatient, dispo per ortho
[2019-04-26] MEDS: cefTRIAXone(*) 2 GM in NS 0.9% 100 ML* 100 ML IVPB SCH (14:15)
[2019-04-27] MEDS: Acetaminophen TAB* 325 MG PO SCH ×2 (05:09→13:54)
[2019-04-27 08:14] LABS: Hematocrit 38 % (42-52); Hemoglobin 13.1 g/dL (14.0-18.0); Platelet Count 326 10^3/uL (150-450)
[2019-04-27] MEDS: Docusate CAP* 100 MG PO SCH (08:34)
[2019-04-27] MEDS: Atenolol TAB* 25 MG PO SCH (08:34)
[2019-04-27] MEDS: Apixaban* 2.5 MG TAB PO SCH (08:34)
[2019-04-27] MEDS: PARoxetine HCL TAB* 10 MG PO SCH (08:35)
[2019-04-27] MEDS: Magnesium Hydroxide LIQ* 30 ML UDC PO SCH (08:38)
--- NOTE | 2019-04-27 11:59 | PN ---
Progress Note - Progress Note Date of Service: 04/27/19 SOAP: Subjective: CC: Right prosthetic hip infection HPI: Mr. Gilliland is a 58 yo male with PMH significant for HTN, HLD, and a right total hip arthroplasty in 2011, he presented to the hospital with significant pain in the right hip with fevers and chills. Denies fever, chills, ABD pain, nausea, vomiting, diarrhea. Right hip pain is controlled. He reports feeling much better today than last week. Appetite is good. He is waiting for a PICC line today. Objective: Vital Signs - 8 hr 04/27/19 04/27/19 04/27/19 04:13 07:15 07:34 Temperature 97.9 F 98.6 F Pulse Rate 67 75 Respiratory 18 20 18 Rate Blood Pressure 132/78 132/79 (mmHg) O2 Sat by Pulse 94 94 Oximetry 04/27/19 11:16 Temperature 98.6 F Pulse Rate 62 Respiratory 22 Rate Blood Pressure 122/72 (mmHg) O2 Sat by Pulse 93 Oximetry Physical Exam: General: NAD, sitting up in a chair Neurological: Alert and Oriented x4 HEENT: Moist MM, no thrush Cardiovascular: Heart rate regular Respiratory: Lung sounds clear bilateral Abdominal: Bowel sounds present; ABD soft, non tender and non distended MSK: GOMEZ, no joint swelling Skin: No rash Laboratory Results - last 24 hr 04/27/19 07:40 Hgb 13.1 L Hct 38 L Plt Count 326 MPV 8.0 Microbiology 04/24/19 11:53 Aerobic Blood Culture - Preliminary Blood Venous No Growth Day 3 Anaerobic Blood Culture - Preliminary No Growth Day 3 04/24/19 11:45 Aerobic Blood Culture - Preliminary Blood Venous No Growth Day 3 Anaerobic Blood Culture - Preliminary No Growth Day 3 04/22/19 10:05 Aerobic Blood Culture - Final Blood Venous Strep Mitis/Strep Oralis Anaerobic Blood Culture - Final No Growth Day 5 04/23/19 18:30 Skin and Soft Tissue MRSA/MSSA (PCR - Final Hip Right Mrsa Negative S.aureus Negative Gram Stain - Final Wound Culture - Final Strep Mitis/Strep Oralis 04/23/19 18:30 Anaerobic Culture - Final Wound No Growth Day 4 04/23/19 18:30 Gram Stain - Final Body Fluid Body Fluid Culture - Final No Growth Day 4 Skin and Soft Tissue MRSA/MSSA (PCR - Final Mrsa Negative S.aureus Negative 04/22/19 14:14 Gram Stain - Final Body Fluid Body Fluid Culture - Final Strep Mitis/Strep Oralis Skin and Soft Tissue MRSA/MSSA (PCR - Final Mrsa Negative S.aureus Negative 04/22/19 10:11 Aerobic Blood Culture - Final Blood Venous Strep Mitis/Strep Oralis Anaerobic Blood Culture - Final Streptococcus Mitis/Oralis Assessment: 1. Right prosthetic hip infection. Synovial fluid from the knee with WBCs 29, 423. S/P I+D with polyethylene liner and femoral head exchange by Dr. Dalton, POD #5. Cultures obtained from the hip with Strep Viridans. Afebrile and leukocytosis has resolved. Pain in the right hip continues to improve. 2. Strep viridans bacteremia. Patient with a broken tooth, suspect this may be the cause of bacteremia. TTE without vegetation. Same bacteria also noted to be in the hip cultures. Repeat blood cultures from 04/24/19 with no growth on day 3. 3. Anemia. Suspect secondary to acute postop blood loss. HH is stable. Plan: Continue Ceftriaxone 2gm IV, day . Place PICC line. Weekly labs while on IV ABX: CBC, CMP, and CRP. Followup with ID in 2 weeks after discharge.
[2019-04-27] MEDS: cefTRIAXone(*) 2 GM in NS 0.9% 100 ML* 100 ML IVPB SCH (13:48)
--- NOTE | 2019-04-27 14:41 | PN ---
Progress Note - Progress Note Date of Service: 04/27/19 SOAP: Subjective: Pt seen sitting in chair. No complaint of pain. Denies CP, SOB, F/C. Vital Signs: Temp Pulse Resp BP Pulse Ox 98.6 F 62 22 122/72 93 04/27/19 11:16 04/27/19 11:16 04/27/19 11:16 04/27/19 11:16 04/27/19 11:16 Laboratory Last Values WBC 8.0 10^3/uL (3.5-10.8) 04/25/19 07:58 RBC 4.08 10^6 /uL (4.18-5.48) L 04/25/19 07:58 Hgb 13.1 g/dL (14.0-18.0) L 04/27/19 07:40 Hct 38 % (42-52) L 04/27/19 07:40 MCV 89 fL (80-94) 04/25/19 07:58 MCH 31 pg (27-31) 04/25/19 07:58 MCHC 35 g/dL (31-36) 04/25/19 07:58 RDW 14 % (10-15) 04/25/19 07:58 Plt Count 326 10^3/uL (150-450) 04/27/19 07:40 MPV 8.0 fL (7.4-10.4) 04/27/19 07:40 Neut % (Auto) 68.4 % 04/25/19 07:58 Lymph % (Auto) 17.6 % 04/25/19 07:58 Maury % (Auto) 11.9 % 04/25/19 07:58 Eos % (Auto) 1.6 % 04/25/19 07:58 Baso % (Auto) 0.5 % 04/25/19 07:58 Absolute Neuts (auto) 5.5 10^3/ul (1.5-7.7) 04/25/19 07:58 Absolute Lymphs (auto) 1.4 10^3/ul (1.0-4.8) 04/25/19 07:58 Absolute Monos (auto) 1.0 10^3/ul (0-0.8) H 04/25/19 07:58 Absolute Eos (auto) 0.1 10^3/ul (0-0.6) 04/25/19 07:58 Absolute Basos (auto) 0.0 10^3/ul (0-0.2) 04/25/19 07:58 Absolute Nucleated RBC 0.0 10^3/ul 04/25/19 07:58 Nucleated RBC % 0.1 04/25/19 07:58 ESR 7 mm/Hr (0-19) 04/22/19 10:05 INR (Anticoag Therapy) 1.02 (0.82-1.09) 04/23/19 06:28 Sodium 136 mmol/L (135-145) 04/25/19 07:58 Potassium 4.3 mmol/L (3.5-5.0) 04/25/19 11:10 Chloride 108 mmol/L (101-111) 04/25/19 07:58 Carbon Dioxide 21 mmol/L (22-32) L 04/25/19 07:58 Anion Gap 7 mmol/L (2-11) 04/25/19 07:58 BUN 12 mg/dL (6-24) 04/25/19 07:58 Creatinine 0.71 mg/dL (0.67-1.17) 04/25/19 07:58 Est GFR ( Amer) 138.9 (>60) 04/25/19 07:58 Est GFR (Non-Af Amer) 114.8 (>60) 04/25/19 07:58 BUN/Creatinine Ratio 16.9 (8-20) 04/25/19 07:58 Glucose 104 mg/dL (70-100) H 04/25/19 07:58 Calcium 7.7 mg/dL (8.6-10.3) L 04/25/19 07:58 Total Bilirubin 0.80 mg/dL (0.2-1.0) 04/22/19 10:05 AST 15 U/L (13-39) 04/22/19 10:05 ALT 23 U/L (7-52) 04/22/19 10:05 Alkaline Phosphatase 62 U/L (34-104) 04/22/19 10:05 C-Reactive Protein 150.34 mg/L (<8.01) H 04/22/19 10:05 Total Protein 6.7 g/dL (6.4-8.9) 04/22/19 10:05 Albumin 4.1 g/dL (3.2-5.2) 04/22/19 10:05 Globulin 2.6 g/dL (2-4) 04/22/19 10:05 Albumin/Globulin Ratio 1.6 (1-3) 04/22/19 10:05 Fluid Source Synovial fluid 04/22/19 14:14 Fluid Volume 10 mL 04/22/19 14:14 Fluid Color Edita 04/22/19 14:14 Fluid Appearance Cloudy 04/22/19 14:14 Fluid WBC 48431 /mcL (0-451720) 04/22/19 14:14 Fluid RBC 91223 /mcL 04/22/19 14:14 Fluid Tot Cell Count 100 04/22/19 14:14 Fluid Neutrophils 98 % 04/22/19 14:14 Fluid Lymphocytes 2 % 04/22/19 14:14 Fluid Cell Count Rvw By 04/22/19 14:14 B. burgdorferi (PCR) Negative (Negative) 04/22/19 14:14 B. mayonii (PCR) Negative (Negative) 04/22/19 14:14 B.garinii/B.afzelii PCR Negative (Negative) 04/22/19 14:14 Fluid Comment 04/22/19 14:14 Vancomycin Trough 13.0 mcg/mL 04/23/19 14:47 Lyme Specimen Source Synovial fluid 04/22/19 14:14 Lyme Total Antibody Negative (Negative) 04/22/19 10:11 Blood Type A Negative 04/23/19 06:28 Antibody Screen Negative 04/23/19 06:28 Objective: A&O x3, NAD, Dressing C/D/I, Calves soft and nontender, NVI distally. Assessment: s/p I&D poly exchange infected right total hip replacement POD #4 Plan: PT/OT OOB WBAT RLE Pain control DVT prophylaxis - Eliquis PICC line placement prior to d/c contiue IV ceftriaxone D/C Home today
--- NOTE | 2019-04-27 14:53 | DS ---
Orthopedic Discharge Summary - Discharge Summary Date of Admission:04/22/19 Date of Discharge: 04/27/19 Date of Surgery: 04/23/19 Attending Orthopedic Provider: Silvia Dalton Pre-operative Diagnosis: Infected right hip s/p right total hip replacement Operative Procedure: I&D infected right total hip replacement Disposition of Patient: Discharge to home with home health care Condition of Patient: Stable History: MATT GOLDSTEIN is a 58 year old M with one week of increasingly severe right hip pain. He is s/p right [place] [address] Knapp. [place] [facility] [place] found to have an infected right hip. Patient has failed conservative management and has elected to undergo an irrigation and debridement and polyethylene exchange right total hip replacement. Hospital Course: MATT was admitted to [facility] on 04/22/19. Patient underwent a irrigation and debridement and polyethylene exchange right total hip replacement without complication followed by a brief recovery in PACU and transfer to the Short Stay Surgical Unit in stable condition. Our hospitalist service, Infectious disease service, physical therapy and occupational therapy also participated in this patients care. Post-op day 1: patient was alert and in no acute distress. Dressing was clean, dry and intact. Operative extremity dorsiflexion and plantarflexion intact, sensation intact to light touch distally, DP2+. Post-op day two: dressing was changed, incision was clean, dry and intact. Patient was deemed to be medically and orthopedically stable for discharge on POD #4. Physical therapy goals were met. PICC line was placed for continued IV antibiotics. Will be discharged to home in a stable condition. Home Medications Medication Instructions Recorded Confirmed Type Atenolol TAB* [Tenormin TAB* 25 MG] 25 mg PO DAILY 04/22/19 04/22/19 History PARoxetine HCL TAB* [Paxil TAB*] 10 mg PO DAILY 04/22/19 04/22/19 History Apixaban* [Eliquis*] 2.5 mg PO BID tab 04/27/19 Rx oxyCODONE/Acetamin 5/325 MG* 1 tab PO Q4H PRN tab 04/27/19 Rx [Percocet 5/325 TAB*] oxyCODONE/Acetamin 5/325 MG* 2 tab PO Q4H PRN tab 04/27/19 Rx [Percocet 5/325 TAB*] Discharge Instructions following Orthopedic Surgery: Activity: * Weight Bearing as tolerated * Continue physical therapy and occupational therapy exercises as shown Hip replacements: Continue Hip Precautions- do not cross legs or bend greater than 90 degrees/squat Wound care: * OK to shower on post-op day 3, no bathing, swimming, or submerging wound. * Use gentle soap, pat dry. Cover with gauze, CINDY wrap or tape. * Visiting home nurse to do wound checks. Call Orthopedic office for: * Increased drainage * Redness * Increased pain * Fever Go to ER with shortness of breath or chest pain. Diet: * Regular diet * Increase fluids and fiber to prevent constipation. * Continue to use stool softeners, call office if no bowel motion within 48 hours. Medications See Home Medication List in your packet for medications that you should take after discharge. DVT Prophylaxis: Eliquis Dosin.5 mg, 1 tab every 12 hours x 30 days Pain Control: Percocet Dosin/325 mg 1-2 tabs by mouth every 4-6 hours as needed for pain. Maximum of 6 tabs per day. Please note that Percocet contains Tylenol (acetaminophen). Maximum daily dose of Tylenol is 4000 mg from all sources. Antibiotics: Ceftriaxone 2gm IV every 24hrs Antibiotics are required prior to any dental work. FOLLOW UP: Follow up with Dr. Dalton Within 10-14 days, call for appointment Please call our office with any questions or concerns ([phone])
[2019-04-27 14:54] VITALS: BP 126/73
== END 2019-04-27 16:10 | disposition home health service (06) | DRG 467 ==
LOC: ED 07:55 → SSU 14:23
PROVIDERS: ADMIT Orthopaedic Surgery; ATTEND Orthopaedic Surgery Adult Reconstructive Orthopaedic Surgery
PROC: 0SPR0JZ Removal of Synthetic Substitute from Right Hip Joint, Femoral Surface, Open Approach (ICD-10-PCS; 2019-04-23)
PROC: 0SP909Z Removal of Liner from Right Hip Joint, Open Approach (ICD-10-PCS; 2019-04-23)
PROC: 0SUA09Z Supplement Right Hip Joint, Acetabular Surface with Liner, Open Approach (ICD-10-PCS; 2019-04-23)
PROC: 0SRR01Z Replacement of Right Hip Joint, Femoral Surface with Metal Synthetic Substitute, Open Approach (ICD-10-PCS; principal; 2019-04-23 17:45)
PROC: 02HV33Z Insertion of Infusion Device into Superior Vena Cava, Percutaneous Approach (ICD-10-PCS; 2019-04-27)
DX: T84.51XA Infection and inflammatory reaction due to internal right hip prosthesis, initial encounter (principal); D62 Acute posthemorrhagic anemia; R78.81 Bacteremia; I10 Essential (primary) hypertension; E78.5 Hyperlipidemia, unspecified; Y79.2 Prosthetic and other implants, materials and accessory orthopedic devices associated with adverse incidents; F32.9 Major depressive disorder, single episode, unspecified; B95.4 Other streptococcus as the cause of diseases classified elsewhere; Y92.9 Unspecified place or not applicable; Z87.891 Personal history of nicotine dependence
CPT/HCPCS: 20610; 36415; 36569; 76937; 77001; 77002; 80048; 80053; 80202; 85014; 85018; 85025; 85049; 85610; 85652; 86140; 86618; 86850; 86900; 86901; 87040; 87070; 87073; 87077; 87186; 87205; 87476; 87640; 87641; 87798; 88112; 88300; 89051; 93306; 99284; A9270-GY; C1776; J0330; J0690; J0696; J1100; J1170; J1644; J1885; J2250; J2405; J2543; J2704; J2765; J3010; J3370; Q9965